=== PATIENT | male | born 1940 | race African-American/Black ===

== ENCOUNTER 2019-12-10 11:45 | Emergency (ER) | payer OTHER ==
[~2019-12-10] VITALS: Ht 180.3 cm; Wt 99.6 kg
[2019-12-10 12:35] LABS: BASOPHILS % 1.2 % (0.0-2.0); EOSINOPHILS % 3.9 % (0.0-5.0); HEMATOCRIT. 39.2 % (42.0-52.0); HEMOGLOBIN. 13.3 g/dL (14.0-18.0); LYMPHOCYTES % 20.3 % (20.0-50.0); MEAN CORPUSCULAR HEMOGLOBIN 32.1 pg (28.0-32.0); MEAN CORPUSCULAR VOLUME 94.5 fL (80.0-94.0); MEAN PLATELET VOLUME 7.5 fl (7.4-10.4); MONOCYTES % 11.8 % (2.0-8.0); NEUTROPHILS % 62.8 % (40.0-76.0); PLATELET 212 x1000/uL (130-400); RED BLOOD CELL COUNT 4.14 mill/uL (4.7-6.1); RED CELL DISTRIBUTION WIDTH 14.5 % (11.6-14.6)
[2019-12-10 12:38] LABS: CHLORIDE 107 mEq/L (98-107)
[2019-12-10 12:41] LABS: INR 1.1; PARTIAL THROMBOPLASTIN TIME 27.5 sec (23.4-31.0); PROTHROMBIN TIME 11.4 sec (9.6-11.0)
[2019-12-10 12:44] LABS: LDL CHOLESTEROL 125 mg/dL (5-100)
[2019-12-10] MEDS ORDERED: IOHEXOL-350 100 ML BOTTLE ONE (13:04)
[2019-12-10] MEDS ORDERED: ASPIRIN 325MG EC TABLET PO ONE (13:30)
[2019-12-10 15:52] LABS: CLARITY URINE CLEAR (CLEAR); COLOR URINE YELLOW (YELLOW); KETONES URINE NEGATIVE (NEGATIVE); LEUKOCYTE ESTERASE URINE NEGATIVE (NEGATIVE); NITRITE URINE NEGATIVE (NEGATIVE); OCCULT BLOOD URINE NEGATIVE (NEGATIVE); PH URINE 5.5 (4.5-8.0); PROTEIN URINE NEGATIVE (NEGATIVE); UROBILINOGEN URINE 0.2 E.U./dL (0.2-1.0)
[2019-12-10 16:00] VITALS: BP 140/66
== END 2019-12-10 17:07 | disposition left against medical advice (07) ==
LOC: ER 11:45 → EDBEDREQ 14:21 → CANBEDREQ 16:51 → ER 17:07
DX: R47.81 Slurred speech (principal); G45.9 Transient cerebral ischemic attack, unspecified
CPT/HCPCS: 36415; 70450; 70496; 70498; 71045; 80053; 80061; 81003; 82962; 83036; 83721; 84484; 85025; 85610; 85730; 93005; 99285; Q9967

== ENCOUNTER 2020-04-12 14:48 | Emergency (ER) | payer MEDICARE, OTHER ==
[~2020-04-12] VITALS: Ht 182.9 cm; Wt 91.0 kg
[2020-04-12] MEDS ORDERED: LEVETIRACETAM 500MG PREMIX 100 ML IV ONE (18:45)
[2020-04-12 19:03] LABS: BASOPHILS % 0.4 % (0.0-2.0); HEMATOCRIT. 30.6 % (42.0-52.0); HEMOGLOBIN. 10.4 g/dL (14.0-18.0); LYMPHOCYTES % 15.3 % (20.0-50.0); MEAN CORPUSCULAR HEMOGLOBIN 31.9 pg (28.0-32.0); MEAN CORPUSCULAR VOLUME 93.5 fL (80.0-94.0); MEAN PLATELET VOLUME 8.2 fl (7.4-10.4); MONOCYTES % 7.7 % (2.0-8.0); NEUTROPHILS % 76.6 % (40.0-76.0); PLATELET 182 x1000/uL (130-400); RED BLOOD CELL COUNT 3.27 mill/uL (4.7-6.1); RED CELL DISTRIBUTION WIDTH 15.4 % (11.6-14.6)
[2020-04-12 19:05] LABS: CHLORIDE 103 mEq/L (98-107)
[2020-04-12 19:10] LABS: INR 1.1; PARTIAL THROMBOPLASTIN TIME 34.6 sec (23.4-31.0); PROTHROMBIN TIME 11.7 sec (9.6-11.0)
[2020-04-12 19:17] LABS: VALPROIC ACID <3.0 ug/mL ug/mL (50-100)
[2020-04-12 20:06] LABS: CARBAMAZEPINE < 0.5 ug/mL (4-12); PHENOBARBITAL < 2.1 ug/mL (15.0-40.0)
[2020-04-12 21:51] VITALS: BP 120/86
== END 2020-04-12 21:55 | disposition home or self-care (01) ==
LOC: ER 15:10
DX: R56.9 Unspecified convulsions (principal); R05 Cough; U07.1 COVID-19; Z87.891 Personal history of nicotine dependence; E78.00 Pure hypercholesterolemia, unspecified; I10 Essential (primary) hypertension; Z86.73 Personal history of transient ischemic attack (TIA), and cerebral infarction without residual deficits
CPT/HCPCS: 36415; 71045; 80053; 80156; 80165; 80184; 80185; 85025; 85610; 85730; 87635; 93005; 96365; 99285; J1953

== ENCOUNTER 2021-11-28 13:31 | Inpatient (IN) | payer MEDICARE, MEDICAID ==
[~2021-11-28] VITALS: Ht 182.9 cm; Wt 74.4 kg
[2021-11-28] MEDS ORDERED: PANTOPRAZOLE SODIUM 40 MG/VIAL IV STA (13:54)
[2021-11-28] MEDS ORDERED: SODIUM CHLORIDE 0.9% 1,000 ML IV ONE (14:00)
[2021-11-28 14:33] LABS: BASOPHILS % 0.4 % (0.0-2.0); EOSINOPHILS % 0.1 % (0.0-5.0); HEMATOCRIT. 30.2 % (42.0-52.0); HEMOGLOBIN. 9.8 g/dL (14.0-18.0); LYMPHOCYTES % 11.4 % (20.0-50.0); MEAN CORPUSCULAR HEMOGLOBIN 27.7 pg (28.0-32.0); MEAN CORPUSCULAR VOLUME 85.4 fL (80.0-94.0); MEAN PLATELET VOLUME 7.4 fl (7.4-10.4); MONOCYTES % 10.1 % (2.0-8.0); PLATELET 293 x1000/uL (130-400); RED BLOOD CELL COUNT 3.53 mill/uL (4.7-6.1); RED CELL DISTRIBUTION WIDTH 17.2 % (11.6-14.6)
[2021-11-28 14:42] LABS: CHLORIDE 104 mEq/L (98-107); INR 1.2
[2021-11-28 16:00] VITALS: BP 105/63
[2021-11-28 17:00] VITALS: BP 105/63
[2021-11-28] MEDS ORDERED: FOLI-43 PO (17:02)
[2021-11-28] MEDS ORDERED: DEXT 5%/0.45% NACL 500ML 1,000 ML IV SCH (18:15)
[2021-11-28] MEDS ORDERED: TRAMADOL 50MG TABLET PO PRN (19:15)
[2021-11-28] MEDS: DEXT 5%/0.45% NACL 1000ML 1,000 ML IV SCH (19:42)
[2021-11-28 20:00] VITALS: BP 146/66
[2021-11-28] MEDS: ATORVASTATIN CALCIUM 40MG TABLET PO SCH (21:14)
[2021-11-29] VITALS: BP 136/61
[2021-11-29 04:00] VITALS: BP 140/71
[2021-11-29 06:13] LABS: BASOPHILS % 0.5 % (0.0-2.0); EOSINOPHILS % 1.2 % (0.0-5.0); HEMATOCRIT. 27.9 % (42.0-52.0); HEMOGLOBIN. 9.3 g/dL (14.0-18.0); LYMPHOCYTES % 21.4 % (20.0-50.0); MEAN CORPUSCULAR HEMOGLOBIN 27.9 pg (28.0-32.0); MEAN CORPUSCULAR VOLUME 83.7 fL (80.0-94.0); MEAN PLATELET VOLUME 7.6 fl (7.4-10.4); MONOCYTES % 12.7 % (2.0-8.0); NEUTROPHILS % 64.2 % (40.0-76.0); PLATELET 289 x1000/uL (130-400); RED BLOOD CELL COUNT 3.33 mill/uL (4.7-6.1); RED CELL DISTRIBUTION WIDTH 16.8 % (11.6-14.6)
[2021-11-29 08:25] VITALS: BP 102/58
[2021-11-29] MEDS ORDERED: FERROUS SULFATE 325MG TABLET PO SCH (09:00)
[2021-11-29] MEDS: ALLOPURINOL 100 MG TABLET PO SCH (09:35)
[2021-11-29] MEDS: FOLIC ACID 1MG TABLET PO SCH (09:35)
[2021-11-29] MEDS: PANTOPRAZOLE SODIUM 40 MG/VIAL IV SCH (09:35)
[2021-11-29] MEDS: DEXT 5%/0.45% NACL 1000ML 1,000 ML IV SCH ×2 (09:36→22:10)
[2021-11-29 12:00] VITALS: BP 96/51
[2021-11-29 12:45] LABS: TOTAL IRON BINDING CAPACITY 295 ug/dL (250-450)
[2021-11-29] MEDS: IRON SUCROSE COMPLEX 100 MG/5 ML ML IV SCH (14:33)
[2021-11-29 15:25] LABS: HEMATOCRIT 29.2 % (42.0-52.0); HEMOGLOBIN 9.3 g/dL (14.0-18.0)
[2021-11-29 16:00] VITALS: BP 108/77
[2021-11-29 16:16] LABS: VITAMIN B12 SERUM 437 pg/mL (211-911)
[2021-11-29 16:24] LABS: FOLIC ACID (FOLATE) SERUM > 20.00 ng/mL (>5.38)
[2021-11-29] MEDS ORDERED: NALOXONE HCL 0.4MG/ML VIAL IV PRN (16:30)
[2021-11-29] MEDS ORDERED: RIVAROXABAN 20 MG TABLET PO SCH (17:00)
[2021-11-29] MEDS: SUCRALFATE 1 G/10 ML UDC PO SCH ×2 (17:54→20:10)
[2021-11-29] MEDS: NA PHOS,M-B/NA PHOS,DI-BA ENEMA 118ML PR NR ×2 (18:44→18:46)
[2021-11-29] MEDS ORDERED: LACTULOSE 20G/30ML UDC PO PRN (19:15)
[2021-11-29] MEDS: ATORVASTATIN CALCIUM 40MG TABLET PO SCH (20:11)
[2021-11-29] MEDS: MUPIROCIN 2% OINT 22GM NS SCH (20:47)
[2021-11-30] VITALS (56 sets, daily range): BP systolic 60–140; BP diastolic 35–85
[2021-11-30] MEDS: PANTOPRAZOLE SODIUM 40 MG/VIAL IV SCH (05:05)
[2021-11-30] MEDS ORDERED: ONDANSETRON HCL 4MG/2ML INJ IV PRN (05:30)
[2021-11-30] MEDS ORDERED: DILTIAZEM HCL 5MG/ML 5ML VIAL IV SCH (05:30)
[2021-11-30] MEDS ORDERED: ACETAMINOPHEN 650MG/20.3ML UDC PO PRN (05:45)
[2021-11-30] MEDS: LACTULOSE 20G/30ML UDC PO SCH ×3 (06:00→21:06)
[2021-11-30] MEDS ORDERED: DEXT 5%/0.9% NACL 1,000 ML IV SCH (06:15)
[2021-11-30 06:53] LABS: BASOPHILS % 0.1 % (0.0-2.0); EOSINOPHILS % 1.1 % (0.0-5.0); HEMATOCRIT. 31.1 % (42.0-52.0); HEMOGLOBIN. 10.3 g/dL (14.0-18.0); LYMPHOCYTES % 8.5 % (20.0-50.0); MEAN CORPUSCULAR HEMOGLOBIN 28.5 pg (28.0-32.0); MEAN CORPUSCULAR VOLUME 86.3 fL (80.0-94.0); MEAN PLATELET VOLUME 7.4 fl (7.4-10.4); MONOCYTES % 0.5 % (2.0-8.0); NEUTROPHILS % 89.8 % (40.0-76.0); PLATELET 287 x1000/uL (130-400); RED CELL DISTRIBUTION WIDTH 17.3 % (11.6-14.6)
[2021-11-30] MEDS ORDERED: SODIUM CHLORIDE 0.9% 500 ML IV ONE (07:00)
[2021-11-30] MEDS ORDERED: POTASSIUM CHLORIDE INJ 30 MEQ in DEXT 5%/0.9% NACL 1,000 ML IV SCH (07:00)
[2021-11-30 07:16] LABS: CHLORIDE 104 mEq/L (98-107)
[2021-11-30 07:28] LABS: PHOSPHORUS 2.5 mg/dL (2.5-4.9)
[2021-11-30] MEDS: CARVEDILOL 3.125 MG TABLET PO SCH ×2 (09:00→21:00)
[2021-11-30] MEDS ORDERED: LIDOCAINE HCL/PF 1% 10 MG/ML 5ML VIAL ONE (09:48)
[2021-11-30] MEDS: FOLIC ACID 1MG TABLET PO SCH (10:22)
[2021-11-30] MEDS: IRON SUCROSE COMPLEX 100 MG/5 ML ML IV SCH (10:22)
[2021-11-30] MEDS: SUCRALFATE 1 G/10 ML UDC PO SCH ×4 (10:22→21:06)
[2021-11-30 10:27] LABS: BG BASE EXCESS -0.5 mmol/L (-2.0-2.0); BG DEOXYHEMOGLOBIN 3.6 % (0.0-5.0); BG FRACTION INSPIRED OXYGEN 21; BG METHEMOGLOBIN 0.3 % (0.0-1.5); BG OXYGEN SATURATION 96.4 % (92.0-98.5); BG OXYHEMOGLOBIN 96.1 % (94.0-97.0); BG PCO2 28.6 mmHg (35.0-45.0); BG PH 7.503 (7.350-7.450); BG PO2 80.4 mmHg (75.0-100.0); BG SAMPLE SITE RIGHT BRACHIAL; BG TOTAL HEMOGLOBIN 9.7 g/dL (12.0-18.0); BG VENT MODE ROOM AIR
[2021-11-30] MEDS: PHENYLEPHRINE 100 MG in DEXT 5% WATER 240 ML IV PRN ×2 (11:00→18:51)
[2021-11-30] MEDS: MUPIROCIN 2% OINT 22GM NS SCH ×2 (11:01→21:10)
[2021-11-30] MEDS: PIPERACILLIN/TAZOBACTAM 3.375 G in DEXTROSE 5% WATER 50 ML IV SCH ×3 (11:02→21:06)
[2021-11-30] MEDS: ALLOPURINOL 100 MG TABLET PO SCH (11:05)
[2021-11-30] MEDS: SODIUM CHLORIDE 0.9% 1,000 ML IV SCH ×2 (11:15→19:57)
[2021-11-30] MEDS ORDERED: AMIODARONE HCL 900 MG in DEXT 5% WATER 482 ML IV PRN (11:15)
[2021-11-30] MEDS ORDERED: NOREPINEPHRINE 8MG/250ML PMX 250 ML IV ONE (11:30)
[2021-11-30] MEDS ORDERED: AMIODARONE HCL 150 MG in DEXT 5% WATER 100 ML IV NR (11:30)
[2021-11-30] MEDS ORDERED: VANCOMYCIN 1.25GM PMX (XELLIA) 250 ML IV NR (12:00)
[2021-11-30] MEDS: NOREPINEPHRINE 8 MG in DEXTROSE 5% WATER 250 ML IV PRN ×3 (12:30→21:48)
[2021-11-30] MEDS ORDERED: DILTIAZEM 125MG/125ML PMX 125 ML IV PRN (12:30)
[2021-11-30] MEDS: VASOPRESSIN 20 UNIT in SODIUM CHLORIDE 0.9% 99 ML IV PRN ×2 (12:38→19:46)
[2021-11-30 15:07] LABS: HEMATOCRIT 22.6 % (42.0-52.0); HEMOGLOBIN 7.3 g/dL (14.0-18.0)
[2021-11-30 16:44] LABS: HEMATOCRIT 27.7 % (42.0-52.0); HEMOGLOBIN 8.6 g/dL (14.0-18.0)
[2021-11-30] MEDS ORDERED: BISACODYL 10MG SUPP PR PRN (18:15)
[2021-11-30] MEDS: ATORVASTATIN CALCIUM 40MG TABLET PO SCH (21:06)
[2021-11-30] MEDS: VANCOMYCIN 750 MG in DEXT 5% WATER 250 ML IV SCH (22:58)
[2021-12-01] VITALS (91 sets, daily range): BP systolic 68–140; BP diastolic 24–83
[2021-12-01 00:08] LABS: HEMATOCRIT 24.6 % (42.0-52.0)
[2021-12-01 01:25] LABS: CLARITY URINE CLOUDY (CLEAR); COLOR URINE YELLOW (YELLOW); KETONES URINE NEGATIVE (NEGATIVE); LEUKOCYTE ESTERASE URINE 3+ (NEGATIVE); NITRITE URINE POSITIVE (NEGATIVE); OCCULT BLOOD URINE 2+ (NEGATIVE); PROTEIN URINE 1+ (NEGATIVE); SPECIFIC GRAVITY URINE 1.023 (1.005-1.030)
[2021-12-01] MEDS: NOREPINEPHRINE 8 MG in DEXTROSE 5% WATER 250 ML IV PRN ×3 (02:56→14:58)
[2021-12-01 05:56] LABS: CHLORIDE 103 mEq/L (98-107)
[2021-12-01] MEDS: LACTULOSE 20G/30ML UDC PO SCH ×3 (05:58→21:41)
[2021-12-01] MEDS: PIPERACILLIN/TAZOBACTAM 3.375 G in DEXTROSE 5% WATER 50 ML IV SCH ×3 (05:58→21:43)
[2021-12-01] MEDS ORDERED: MAGNESIUM 2 G PREMIX 50 ML IV SCH ×2 (07:15→10:00)
[2021-12-01] MEDS: PANTOPRAZOLE SODIUM 40 MG/VIAL IV SCH ×2 (08:25→21:23)
[2021-12-01] MEDS: SUCRALFATE 1 G/10 ML UDC PO SCH ×4 (08:25→21:28)
[2021-12-01] MEDS: ALLOPURINOL 100 MG TABLET PO SCH (08:25)
[2021-12-01] MEDS: VASOPRESSIN 20 UNIT in SODIUM CHLORIDE 0.9% 99 ML IV PRN (08:25)
[2021-12-01] MEDS: IRON SUCROSE COMPLEX 100 MG/5 ML ML IV SCH (08:25)
[2021-12-01] MEDS: SODIUM CHLORIDE 0.9% 1,000 ML IV SCH ×2 (08:26→17:08)
[2021-12-01] MEDS: FOLIC ACID 1MG TABLET PO SCH (08:26)
[2021-12-01] MEDS: CARVEDILOL 3.125 MG TABLET PO SCH ×2 (08:26→21:29)
[2021-12-01] MEDS: VANCOMYCIN 750 MG in DEXT 5% WATER 250 ML IV SCH ×2 (08:28→21:25)
[2021-12-01] MEDS: MUPIROCIN 2% OINT 22GM NS SCH (08:29)
[2021-12-01] MEDS: FUROSEMIDE 40MG/4ML VIAL IVP SCH (10:20)
[2021-12-01] MEDS: AMIODARONE HCL 200 MG TABLET PO SCH ×2 (10:21→21:00)
[2021-12-01 11:05] LABS: HEMATOCRIT. 24.9 % (42.0-52.0); MEAN CORPUSCULAR VOLUME 84.3 fL (80.0-94.0); MEAN PLATELET VOLUME 7.9 fl (7.4-10.4); PLATELET 222 x1000/uL (130-400); RED BLOOD CELL COUNT 2.96 mill/uL (4.7-6.1)
[2021-12-01 12:50] LABS: PLATELET ESTIMATE NORMAL
[2021-12-01 15:49] LABS: HEMATOCRIT 26.5 % (42.0-52.0); HEMOGLOBIN 8.5 g/dL (14.0-18.0)
[2021-12-01] MEDS ORDERED: AMIODARONE HCL 200 MG TABLET PO SCH (21:00)
[2021-12-01] MEDS: ATORVASTATIN CALCIUM 40MG TABLET PO SCH (21:28)
[2021-12-02] VITALS (67 sets, daily range): BP systolic 71–156; BP diastolic 35–98
[2021-12-02] MEDS: NOREPINEPHRINE 8 MG in DEXTROSE 5% WATER 250 ML IV PRN ×3 (00:32→22:57)
[2021-12-02] MEDS: VASOPRESSIN 20 UNIT in SODIUM CHLORIDE 0.9% 99 ML IV PRN (00:34)
[2021-12-02] MEDS: MUPIROCIN 2% OINT 22GM NS SCH ×3 (00:35→22:00)
[2021-12-02] MEDS: SODIUM CHLORIDE 0.9% 1,000 ML IV SCH ×2 (03:22→13:47)
[2021-12-02 05:41] LABS: HEMATOCRIT. 23.3 % (42.0-52.0); HEMOGLOBIN. 7.6 g/dL (14.0-18.0); MEAN CORPUSCULAR HEMOGLOBIN 27.2 pg (28.0-32.0); MEAN CORPUSCULAR VOLUME 83.6 fL (80.0-94.0); PLATELET 208 x1000/uL (130-400); RED BLOOD CELL COUNT 2.79 mill/uL (4.7-6.1); RED CELL DISTRIBUTION WIDTH 16.9 % (11.6-14.6)
[2021-12-02 06:05] LABS: CHLORIDE 100 mEq/L (98-107)
[2021-12-02] MEDS: PIPERACILLIN/TAZOBACTAM 3.375 G in DEXTROSE 5% WATER 50 ML IV SCH ×2 (06:21→13:59)
[2021-12-02] MEDS: LACTULOSE 20G/30ML UDC PO SCH ×3 (06:22→22:05)
[2021-12-02 07:54] LABS: PLATELET ESTIMATE NORMAL
[2021-12-02] MEDS: VANCOMYCIN 750 MG in DEXT 5% WATER 250 ML IV SCH (08:03)
[2021-12-02] MEDS: FOLIC ACID 1MG TABLET PO SCH (08:04)
[2021-12-02] MEDS: AMIODARONE HCL 200 MG TABLET PO SCH ×2 (08:05→22:05)
[2021-12-02] MEDS: IRON SUCROSE COMPLEX 100 MG/5 ML ML IV SCH (08:06)
[2021-12-02] MEDS: KCL 20MEQ/100ML X 2 FOR TOTAL KCL 40MEQ/200ML IV SCH ×3 (08:06→13:59)
[2021-12-02] MEDS: PANTOPRAZOLE SODIUM 40 MG/VIAL IV SCH ×2 (08:06→21:00)
[2021-12-02] MEDS: SUCRALFATE 1 G/10 ML UDC PO SCH ×4 (08:06→21:59)
[2021-12-02] MEDS: ALLOPURINOL 100 MG TABLET PO SCH (08:06)
[2021-12-02] MEDS: FUROSEMIDE 40MG/4ML VIAL IVP SCH (08:06)
[2021-12-02] MEDS: CARVEDILOL 3.125 MG TABLET PO SCH ×2 (08:07→21:00)
[2021-12-02] MEDS: ATORVASTATIN CALCIUM 40MG TABLET PO SCH (22:00)
[2021-12-02] MEDS: MEROPENEM 1,000 MG in SODIUM CHLORIDE 0.9% 100 ML IV SCH (22:05)
[2021-12-03] VITALS (70 sets, daily range): BP systolic 81–130; BP diastolic 52–82
[2021-12-03] MEDS: SODIUM CHLORIDE 0.9% 1,000 ML IV SCH ×2 (01:05→09:19)
[2021-12-03 05:54] LABS: HEMATOCRIT. 25.2 % (42.0-52.0); HEMOGLOBIN. 8.3 g/dL (14.0-18.0); MEAN CORPUSCULAR HEMOGLOBIN 27.6 pg (28.0-32.0); MEAN CORPUSCULAR VOLUME 83.5 fL (80.0-94.0); MEAN PLATELET VOLUME 7.9 fl (7.4-10.4); PLATELET 212 x1000/uL (130-400); RED BLOOD CELL COUNT 3.02 mill/uL (4.7-6.1); RED CELL DISTRIBUTION WIDTH 16.9 % (11.6-14.6)
[2021-12-03 05:58] LABS: CHLORIDE 106 mEq/L (98-107)
[2021-12-03] MEDS: LACTULOSE 20G/30ML UDC PO SCH ×3 (06:22→22:38)
[2021-12-03] MEDS: MEROPENEM 1,000 MG in SODIUM CHLORIDE 0.9% 100 ML IV SCH ×3 (06:22→22:39)
[2021-12-03] MEDS ORDERED: POTASSIUM CHLORIDE 20MEQ TABLET SR PO NR (09:00)
[2021-12-03] MEDS: CARVEDILOL 3.125 MG TABLET PO SCH ×2 (09:00→21:00)
[2021-12-03] MEDS: FUROSEMIDE 40MG/4ML VIAL IVP SCH (09:16)
[2021-12-03] MEDS: PANTOPRAZOLE SODIUM 40 MG/VIAL IV SCH ×2 (09:16→21:11)
[2021-12-03] MEDS: SUCRALFATE 1 G/10 ML UDC PO SCH ×4 (09:16→21:11)
[2021-12-03] MEDS: IRON SUCROSE COMPLEX 100 MG/5 ML ML IV SCH (09:16)
[2021-12-03] MEDS: ALLOPURINOL 100 MG TABLET PO SCH (09:18)
[2021-12-03] MEDS: FOLIC ACID 1MG TABLET PO SCH (09:18)
[2021-12-03] MEDS: POTASSIUM CHLORIDE 20MEQ TABLET SR PO SCH (09:18)
[2021-12-03] MEDS: AMIODARONE HCL 200 MG TABLET PO SCH ×2 (09:19→21:12)
[2021-12-03] MEDS: MUPIROCIN 2% OINT 22GM NS SCH ×2 (09:20→21:11)
[2021-12-03 13:46] LABS: PLATELET ESTIMATE NORMAL
[2021-12-03] MEDS ORDERED: ALBUMIN HUMAN 25GM/100ML (25%) IV NR (20:30)
[2021-12-03] MEDS: ATORVASTATIN CALCIUM 40MG TABLET PO SCH (21:12)
[2021-12-04] VITALS (48 sets, daily range): BP systolic 82–123; BP diastolic 40–74
[2021-12-04] MEDS: SODIUM CHLORIDE 0.9% 1,000 ML IV SCH (01:06)
[2021-12-04 06:23] LABS: BASOPHILS % 0.5 % (0.0-2.0); EOSINOPHILS % 1.7 % (0.0-5.0); HEMATOCRIT. 25.9 % (42.0-52.0); HEMOGLOBIN. 8.5 g/dL (14.0-18.0); LYMPHOCYTES % 11.4 % (20.0-50.0); MEAN CORPUSCULAR HEMOGLOBIN 27.6 pg (28.0-32.0); MEAN CORPUSCULAR VOLUME 83.6 fL (80.0-94.0); MEAN PLATELET VOLUME 7.7 fl (7.4-10.4); MONOCYTES % 7.4 % (2.0-8.0); PLATELET 211 x1000/uL (130-400); RED BLOOD CELL COUNT 3.09 mill/uL (4.7-6.1); RED CELL DISTRIBUTION WIDTH 17.5 % (11.6-14.6)
[2021-12-04 06:28] LABS: CHLORIDE 108 mEq/L (98-107)
[2021-12-04] MEDS: LACTULOSE 20G/30ML UDC PO SCH ×3 (06:54→21:19)
[2021-12-04] MEDS: MEROPENEM 1,000 MG in SODIUM CHLORIDE 0.9% 100 ML IV SCH ×3 (06:54→21:19)
[2021-12-04 07:01] LABS: PHOSPHORUS 0.9 mg/dL (2.5-4.9)
[2021-12-04] MEDS: AMIODARONE HCL 200 MG TABLET PO SCH ×2 (08:46→09:45)
[2021-12-04] MEDS: SUCRALFATE 1 G/10 ML UDC PO SCH ×4 (08:46→21:19)
[2021-12-04] MEDS: ALLOPURINOL 100 MG TABLET PO SCH (08:46)
[2021-12-04] MEDS: FUROSEMIDE 40MG/4ML VIAL IVP SCH (08:46)
[2021-12-04] MEDS: CARVEDILOL 3.125 MG TABLET PO SCH ×2 (08:46→21:00)
[2021-12-04] MEDS: POTASSIUM CHLORIDE 20MEQ TABLET SR PO SCH (08:46)
[2021-12-04] MEDS: MUPIROCIN 2% OINT 22GM NS SCH (08:47)
[2021-12-04] MEDS: PANTOPRAZOLE SODIUM 40 MG/VIAL IV SCH ×2 (08:47→21:19)
[2021-12-04] MEDS: FOLIC ACID 1MG TABLET PO SCH (08:47)
[2021-12-04] MEDS ORDERED: POTASSIUM CHLORIDE 20MEQ TABLET SR PO NR (09:30)
[2021-12-04] MEDS ORDERED: POTASSIUM PHOS,M-BASIC-D-BASIC 20 MMOL in DEXT 5% WATER 243.3333 ML IV NR (12:00)
[2021-12-04] MEDS: ATORVASTATIN CALCIUM 40MG TABLET PO SCH (21:19)
[2021-12-05] VITALS (46 sets, daily range): BP systolic 82–128; BP diastolic 28–83
[2021-12-05 03:38] LABS: BASOPHILS % 0.5 % (0.0-2.0); EOSINOPHILS % 1.8 % (0.0-5.0); HEMATOCRIT. 30.2 % (42.0-52.0); HEMOGLOBIN. 9.8 g/dL (14.0-18.0); LYMPHOCYTES % 18.1 % (20.0-50.0); MEAN CORPUSCULAR HEMOGLOBIN 27.4 pg (28.0-32.0); MEAN CORPUSCULAR VOLUME 84.7 fL (80.0-94.0); MEAN PLATELET VOLUME 7.9 fl (7.4-10.4); NEUTROPHILS % 67.6 % (40.0-76.0); PLATELET 261 x1000/uL (130-400); RED BLOOD CELL COUNT 3.57 mill/uL (4.7-6.1); RED CELL DISTRIBUTION WIDTH 17.1 % (11.6-14.6)
[2021-12-05 03:47] LABS: CHLORIDE 104 mEq/L (98-107)
[2021-12-05 03:50] LABS: PROTHROMBIN TIME 11.2 sec (9.6-11.0)
[2021-12-05 04:17] LABS: PHOSPHORUS 0.8 mg/dL (2.5-4.9)
[2021-12-05] MEDS: MEROPENEM 1,000 MG in SODIUM CHLORIDE 0.9% 100 ML IV SCH ×3 (05:22→21:04)
[2021-12-05] MEDS: LACTULOSE 20G/30ML UDC PO SCH ×3 (05:22→21:02)
[2021-12-05] MEDS: DEXT 5%/0.45% NACL 1000ML 1,000 ML IV SCH ×2 (06:31→22:54)
[2021-12-05] MEDS ORDERED: SODIUM PHOS,M-BASIC-D-BASIC 20 MM in DEXT 5% WATER 243.3333 ML IV NR (07:00)
[2021-12-05] MEDS: SUCRALFATE 1 G/10 ML UDC PO SCH ×4 (07:50→21:02)
[2021-12-05] MEDS: FOLIC ACID 1MG TABLET PO SCH (09:00)
[2021-12-05] MEDS: ALLOPURINOL 100 MG TABLET PO SCH (09:00)
[2021-12-05] MEDS: CARVEDILOL 3.125 MG TABLET PO SCH ×2 (09:00→21:00)
[2021-12-05] MEDS ORDERED: MAGNESIUM 2 G PREMIX 50 ML IV NR (09:00)
[2021-12-05] MEDS: PANTOPRAZOLE SODIUM 40 MG/VIAL IV SCH ×2 (09:29→21:02)
[2021-12-05] MEDS ORDERED: SODIUM PHOS,M-BASIC-D-BASIC 30 MM in DEXT 5% WATER 500 ML IV ONE (12:00)
[2021-12-05] MEDS ORDERED: PHENYLEPHRINE HCL 10 MG/ML 1ML (IV VIAL) IV ONE (13:01)
[2021-12-05] MEDS: AMIODARONE HCL 200 MG TABLET PO SCH (13:30)
[2021-12-05] MEDS: FUROSEMIDE 40MG/4 ML UDC PO SCH (13:30)
[2021-12-05] MEDS: POTASSIUM CHLORIDE 20MEQ TABLET SR PO SCH (13:30)
[2021-12-05] MEDS: ATORVASTATIN CALCIUM 40MG TABLET PO SCH (21:03)
[2021-12-06] VITALS (64 sets, daily range): BP systolic 77–120; BP diastolic 38–76
[2021-12-06] MEDS: LACTULOSE 20G/30ML UDC PO SCH ×3 (06:14→21:30)
[2021-12-06] MEDS: MEROPENEM 1,000 MG in SODIUM CHLORIDE 0.9% 100 ML IV SCH ×3 (06:14→21:30)
[2021-12-06 07:26] LABS: HEMATOCRIT. 31.1 % (42.0-52.0); HEMOGLOBIN. 10.4 g/dL (14.0-18.0); MEAN CORPUSCULAR VOLUME 83.5 fL (80.0-94.0); MEAN PLATELET VOLUME 8.2 fl (7.4-10.4); PLATELET 262 x1000/uL (130-400); RED BLOOD CELL COUNT 3.73 mill/uL (4.7-6.1); RED CELL DISTRIBUTION WIDTH 17.5 % (11.6-14.6)
[2021-12-06 07:33] LABS: CHLORIDE 102 mEq/L (98-107)
[2021-12-06] MEDS: CARVEDILOL 3.125 MG TABLET PO SCH ×2 (08:48→21:00)
[2021-12-06] MEDS: ALLOPURINOL 100 MG TABLET PO SCH (08:48)
[2021-12-06] MEDS: SUCRALFATE 1 G/10 ML UDC PO SCH ×4 (08:57→21:30)
[2021-12-06] MEDS: PANTOPRAZOLE SODIUM 40 MG/VIAL IV SCH ×2 (08:57→21:30)
[2021-12-06] MEDS: AMIODARONE HCL 200 MG TABLET PO SCH (08:58)
[2021-12-06] MEDS: FOLIC ACID 1MG TABLET PO SCH (08:58)
[2021-12-06] MEDS: POTASSIUM CHLORIDE 20MEQ TABLET SR PO SCH (08:58)
[2021-12-06] MEDS: FUROSEMIDE 40MG/4 ML UDC PO SCH (08:59)
[2021-12-06 09:09] LABS: PLATELET ESTIMATE NORMAL
[2021-12-06] MEDS: NOREPINEPHRINE 8 MG in DEXTROSE 5% WATER 250 ML IV PRN (10:34)
[2021-12-06] MEDS ORDERED: SODIUM PHOS,M-BASIC-D-BASIC 15 MM in DEXT 5% WATER 245 ML IV ONE (15:00)
[2021-12-06] MEDS: ATORVASTATIN CALCIUM 40MG TABLET PO SCH (21:30)
[2021-12-07] VITALS (94 sets, daily range): BP systolic 78–141; BP diastolic 26–86
[2021-12-07] MEDS: NOREPINEPHRINE 8 MG in DEXTROSE 5% WATER 250 ML IV PRN ×2 (05:26→19:51)
[2021-12-07] MEDS: MEROPENEM 1,000 MG in SODIUM CHLORIDE 0.9% 100 ML IV SCH ×3 (06:19→21:33)
[2021-12-07] MEDS: LACTULOSE 20G/30ML UDC PO SCH ×3 (06:19→21:33)
[2021-12-07] MEDS: CARVEDILOL 3.125 MG TABLET PO SCH ×2 (08:28→21:33)
[2021-12-07] MEDS: SUCRALFATE 1 G/10 ML UDC PO SCH ×4 (08:29→21:33)
[2021-12-07] MEDS: ALLOPURINOL 100 MG TABLET PO SCH (08:29)
[2021-12-07] MEDS: PANTOPRAZOLE SODIUM 40 MG/VIAL IV SCH ×2 (08:29→21:33)
[2021-12-07] MEDS: AMIODARONE HCL 200 MG TABLET PO SCH (08:29)
[2021-12-07] MEDS: FOLIC ACID 1MG TABLET PO SCH (08:29)
[2021-12-07 11:23] LABS: HEMATOCRIT. 30.5 % (42.0-52.0); MEAN CORPUSCULAR HEMOGLOBIN 27.7 pg (28.0-32.0); MEAN CORPUSCULAR VOLUME 84.8 fL (80.0-94.0); MEAN PLATELET VOLUME 7.8 fl (7.4-10.4); PLATELET 300 x1000/uL (130-400)
[2021-12-07 11:27] LABS: CHLORIDE 104 mEq/L (98-107)
[2021-12-07 11:32] LABS: PHOSPHORUS 2.1 mg/dL (2.5-4.9)
[2021-12-07 12:41] LABS: PLATELET ESTIMATE NORMAL
[2021-12-07] MEDS ORDERED: SODIUM PHOS,M-BASIC-D-BASIC 15 MM in DEXT 5% WATER 245 ML IV SCH (14:00)
[2021-12-07] MEDS: ATORVASTATIN CALCIUM 40MG TABLET PO SCH (21:33)
[2021-12-08] VITALS (90 sets, daily range): BP systolic 73–125; BP diastolic 32–73
[2021-12-08 05:50] LABS: HEMOGLOBIN. 10.3 g/dL (14.0-18.0); MEAN CORPUSCULAR HEMOGLOBIN 27.5 pg (28.0-32.0); MEAN CORPUSCULAR VOLUME 85.3 fL (80.0-94.0); MEAN PLATELET VOLUME 8.1 fl (7.4-10.4); PLATELET 304 x1000/uL (130-400); RED BLOOD CELL COUNT 3.76 mill/uL (4.7-6.1); RED CELL DISTRIBUTION WIDTH 17.7 % (11.6-14.6)
[2021-12-08 05:57] LABS: INR 1.1; PROTHROMBIN TIME 11.4 sec (9.6-11.0)
[2021-12-08] MEDS: MEROPENEM 1,000 MG in SODIUM CHLORIDE 0.9% 100 ML IV SCH ×3 (06:00→21:14)
[2021-12-08] MEDS: LACTULOSE 20G/30ML UDC PO SCH ×2 (06:00→14:00)
[2021-12-08] MEDS: NOREPINEPHRINE 8 MG in DEXTROSE 5% WATER 250 ML IV PRN (06:00)
[2021-12-08 06:05] LABS: CHLORIDE 103 mEq/L (98-107)
[2021-12-08] MEDS: SUCRALFATE 1 G/10 ML UDC PO SCH ×4 (07:50→21:16)
[2021-12-08 08:30] LABS: PLATELET ESTIMATE NORMAL
[2021-12-08] MEDS: PANTOPRAZOLE SODIUM 40 MG/VIAL IV SCH ×2 (08:31→21:16)
[2021-12-08] MEDS: CARVEDILOL 3.125 MG TABLET PO SCH ×2 (09:00→21:00)
[2021-12-08] MEDS: AMIODARONE HCL 200 MG TABLET PO SCH (09:00)
[2021-12-08] MEDS: ALLOPURINOL 100 MG TABLET PO SCH (09:00)
[2021-12-08] MEDS: FOLIC ACID 1MG TABLET PO SCH (09:00)
[2021-12-08] MEDS ORDERED: ALBUMIN HUMAN 25GM/100ML (25%) IV NR (10:00)
[2021-12-08] MEDS: DEXT 5%/0.9% NACL 1,000 ML IV SCH (10:01)
[2021-12-08] MEDS ORDERED: SODIUM PHOS,M-BASIC-D-BASIC 10 MM in DEXT 5% WATER 246.6667 ML IV NR (11:00)
[2021-12-08] MEDS: MIDODRINE HCL 5MG TABLET PO SCH ×3 (11:30→17:06)
[2021-12-08] MEDS ORDERED: PROPOFOL 200MG/20ML VIAL IV ONE (13:59)
[2021-12-08] MEDS ORDERED: MIDAZOLAM HCL 2 MG/2 ML VIAL ONE (13:59)
[2021-12-08] MEDS ORDERED: ETOMIDATE 2MG/ML 10ML VIAL IV ONE (14:10)
[2021-12-08] MEDS: ATORVASTATIN CALCIUM 40MG TABLET PO SCH (21:15)
[2021-12-09] VITALS (96 sets, daily range): BP systolic 79–138; BP diastolic 40–101
[2021-12-09] MEDS: NOREPINEPHRINE 8 MG in DEXTROSE 5% WATER 250 ML IV PRN (00:55)
[2021-12-09] MEDS: DEXT 5%/0.9% NACL 1,000 ML IV SCH ×2 (01:45→13:36)
[2021-12-09] MEDS: LACTULOSE 20G/30ML UDC PO SCH ×4 (05:28→21:00)
[2021-12-09] MEDS: MEROPENEM 1,000 MG in SODIUM CHLORIDE 0.9% 100 ML IV SCH ×3 (05:28→21:00)
[2021-12-09 05:48] LABS: BASOPHILS % 0.6 % (0.0-2.0); EOSINOPHILS % 2.3 % (0.0-5.0); HEMATOCRIT. 27.5 % (42.0-52.0); LYMPHOCYTES % 14.6 % (20.0-50.0); MEAN CORPUSCULAR HEMOGLOBIN 27.9 pg (28.0-32.0); MEAN CORPUSCULAR VOLUME 85.2 fL (80.0-94.0); MEAN PLATELET VOLUME 7.9 fl (7.4-10.4); MONOCYTES % 10.3 % (2.0-8.0); NEUTROPHILS % 72.2 % (40.0-76.0); PLATELET 303 x1000/uL (130-400); RED BLOOD CELL COUNT 3.23 mill/uL (4.7-6.1); RED CELL DISTRIBUTION WIDTH 17.8 % (11.6-14.6)
[2021-12-09 06:00] LABS: CHLORIDE 107 mEq/L (98-107)
[2021-12-09 06:04] LABS: PHOSPHORUS 1.4 mg/dL (2.5-4.9)
[2021-12-09] MEDS: MIDODRINE HCL 5MG TABLET PO SCH ×3 (08:15→17:30)
[2021-12-09] MEDS: SUCRALFATE 1 G/10 ML UDC PO SCH ×4 (08:15→21:00)
[2021-12-09] MEDS: FOLIC ACID 1MG TABLET PO SCH (08:15)
[2021-12-09] MEDS: AMIODARONE HCL 200 MG TABLET PO SCH (08:15)
[2021-12-09] MEDS: ALLOPURINOL 100 MG TABLET PO SCH (08:15)
[2021-12-09] MEDS: PANTOPRAZOLE SODIUM 40 MG/VIAL IV SCH ×2 (08:15→21:01)
[2021-12-09] MEDS: CARVEDILOL 3.125 MG TABLET PO SCH ×2 (08:16→20:11)
[2021-12-09] MEDS ORDERED: POTASSIUM PHOS,M-BASIC-D-BASIC 20 MMOL in DEXT 5% WATER 243.3333 ML IV NR (09:30)
[2021-12-09] MEDS: POTASSIUM-SODIUM PHOSPHATE POWDER PACKET PO SCH ×2 (09:49→17:29)
[2021-12-09] MEDS: TRAMADOL 50MG TABLET PO PRN (21:01)
[2021-12-09] MEDS: ATORVASTATIN CALCIUM 40MG TABLET PO SCH (21:01)
[2021-12-10] VITALS (72 sets, daily range): BP systolic 55–124; BP diastolic 23–99
[2021-12-10] MEDS: DEXT 5%/0.9% NACL 1,000 ML IV SCH (02:08)
[2021-12-10] MEDS: LACTULOSE 20G/30ML UDC PO SCH ×3 (05:18→21:39)
[2021-12-10] MEDS: MEROPENEM 1,000 MG in SODIUM CHLORIDE 0.9% 100 ML IV SCH ×3 (05:18→23:08)
[2021-12-10] MEDS: TRAMADOL 50MG TABLET PO PRN (05:18)
[2021-12-10 05:51] LABS: BASOPHILS % 0.5 % (0.0-2.0); EOSINOPHILS % 2.1 % (0.0-5.0); HEMATOCRIT. 27.9 % (42.0-52.0); LYMPHOCYTES % 17.7 % (20.0-50.0); MEAN CORPUSCULAR HEMOGLOBIN 27.6 pg (28.0-32.0); MEAN CORPUSCULAR VOLUME 85.8 fL (80.0-94.0); MEAN PLATELET VOLUME 7.7 fl (7.4-10.4); MONOCYTES % 11.6 % (2.0-8.0); NEUTROPHILS % 68.1 % (40.0-76.0); PLATELET 306 x1000/uL (130-400); RED BLOOD CELL COUNT 3.25 mill/uL (4.7-6.1); RED CELL DISTRIBUTION WIDTH 18.3 % (11.6-14.6)
[2021-12-10 06:03] LABS: CHLORIDE 108 mEq/L (98-107)
[2021-12-10 06:16] LABS: PHOSPHORUS 1.7 mg/dL (2.5-4.9)
[2021-12-10] MEDS: SUCRALFATE 1 G/10 ML UDC PO SCH ×4 (08:01→21:40)
[2021-12-10] MEDS: PANTOPRAZOLE SODIUM 40 MG/VIAL IV SCH ×2 (08:01→21:41)
[2021-12-10] MEDS: MIDODRINE HCL 5MG TABLET PO SCH ×3 (08:02→17:05)
[2021-12-10] MEDS: POTASSIUM-SODIUM PHOSPHATE POWDER PACKET PO SCH ×2 (08:02→17:05)
[2021-12-10] MEDS: AMIODARONE HCL 200 MG TABLET PO SCH (08:02)
[2021-12-10] MEDS: CARVEDILOL 3.125 MG TABLET PO SCH ×2 (08:02→21:40)
[2021-12-10] MEDS: FOLIC ACID 1MG TABLET PO SCH (08:02)
[2021-12-10] MEDS: ALLOPURINOL 100 MG TABLET PO SCH (08:03)
[2021-12-10] MEDS ORDERED: POTASSIUM PHOS,M-BASIC-D-BASIC 20 MMOL in DEXT 5% WATER 243.3333 ML IV NR (13:30)
[2021-12-10] MEDS: ATORVASTATIN CALCIUM 40MG TABLET PO SCH (21:40)
[2021-12-11] VITALS: BP 90/49
[2021-12-11 04:00] VITALS: BP 131/62
[2021-12-11] MEDS: LACTULOSE 20G/30ML UDC PO SCH ×3 (05:24→21:10)
[2021-12-11] MEDS: MEROPENEM 1,000 MG in SODIUM CHLORIDE 0.9% 100 ML IV SCH ×3 (05:24→21:10)
[2021-12-11 07:01] LABS: CHLORIDE 102 mEq/L (98-107)
[2021-12-11 07:02] LABS: BASOPHILS % 0.5 % (0.0-2.0); EOSINOPHILS % 1.4 % (0.0-5.0); HEMATOCRIT. 31.7 % (42.0-52.0); HEMOGLOBIN. 10.3 g/dL (14.0-18.0); LYMPHOCYTES % 10.6 % (20.0-50.0); MEAN CORPUSCULAR HEMOGLOBIN 27.5 pg (28.0-32.0); MEAN CORPUSCULAR VOLUME 84.7 fL (80.0-94.0); MEAN PLATELET VOLUME 7.7 fl (7.4-10.4); MONOCYTES % 8.2 % (2.0-8.0); NEUTROPHILS % 79.3 % (40.0-76.0); PLATELET 385 x1000/uL (130-400); RED BLOOD CELL COUNT 3.74 mill/uL (4.7-6.1); RED CELL DISTRIBUTION WIDTH 17.9 % (11.6-14.6)
[2021-12-11 07:09] LABS: PHOSPHORUS 2.2 mg/dL (2.5-4.9)
[2021-12-11 08:00] VITALS: BP 100/59
[2021-12-11] MEDS: CARVEDILOL 3.125 MG TABLET PO SCH ×2 (09:00→20:18)
[2021-12-11] MEDS: AMIODARONE HCL 200 MG TABLET PO SCH ×2 (09:00→20:18)
[2021-12-11] MEDS: SUCRALFATE 1 G/10 ML UDC PO SCH ×4 (09:00→20:22)
[2021-12-11] MEDS: MIDODRINE HCL 5MG TABLET PO SCH ×3 (09:01→16:45)
[2021-12-11] MEDS: PANTOPRAZOLE SODIUM 40 MG/VIAL IV SCH ×2 (09:01→20:22)
[2021-12-11] MEDS: ALLOPURINOL 100 MG TABLET PO SCH (09:01)
[2021-12-11] MEDS: FOLIC ACID 1MG TABLET PO SCH (09:01)
[2021-12-11] MEDS: POTASSIUM-SODIUM PHOSPHATE POWDER PACKET PO SCH ×2 (09:01→16:45)
[2021-12-11 12:00] VITALS: BP 109/56
[2021-12-11 16:00] VITALS: BP 90/65
[2021-12-11 20:00] VITALS: BP 102/81
[2021-12-11] MEDS: ATORVASTATIN CALCIUM 40MG TABLET PO SCH (20:22)
[2021-12-12] VITALS: BP 100/64
[2021-12-12 04:00] VITALS: BP 105/52
[2021-12-12] MEDS: LACTULOSE 20G/30ML UDC PO SCH ×4 (05:36→22:50)
[2021-12-12] MEDS: MEROPENEM 1,000 MG in SODIUM CHLORIDE 0.9% 100 ML IV SCH ×3 (05:36→22:50)
[2021-12-12 08:00] VITALS: BP 100/61
[2021-12-12] MEDS: AMIODARONE HCL 200 MG TABLET PO SCH (08:07)
[2021-12-12] MEDS: CARVEDILOL 3.125 MG TABLET PO SCH ×2 (08:40→20:48)
[2021-12-12] MEDS: MIDODRINE HCL 5MG TABLET PO SCH ×3 (08:48→17:48)
[2021-12-12] MEDS: PANTOPRAZOLE SODIUM 40 MG/VIAL IV SCH ×2 (08:48→20:55)
[2021-12-12] MEDS: FOLIC ACID 1MG TABLET PO SCH (08:48)
[2021-12-12] MEDS: ALLOPURINOL 100 MG TABLET PO SCH (08:48)
[2021-12-12] MEDS: SUCRALFATE 1 G/10 ML UDC PO SCH ×4 (08:48→20:55)
[2021-12-12] MEDS: POTASSIUM-SODIUM PHOSPHATE POWDER PACKET PO SCH ×2 (08:50→17:47)
[2021-12-12 09:39] LABS: BASOPHILS % 0.5 % (0.0-2.0); EOSINOPHILS % 0.9 % (0.0-5.0); HEMOGLOBIN. 10.4 g/dL (14.0-18.0); LYMPHOCYTES % 11.2 % (20.0-50.0); MEAN CORPUSCULAR HEMOGLOBIN 27.5 pg (28.0-32.0); MEAN CORPUSCULAR VOLUME 84.6 fL (80.0-94.0); MEAN PLATELET VOLUME 7.8 fl (7.4-10.4); MONOCYTES % 9.9 % (2.0-8.0); NEUTROPHILS % 77.5 % (40.0-76.0); PLATELET 362 x1000/uL (130-400); RED BLOOD CELL COUNT 3.78 mill/uL (4.7-6.1); RED CELL DISTRIBUTION WIDTH 18.1 % (11.6-14.6)
[2021-12-12 09:54] LABS: CHLORIDE 100 mEq/L (98-107)
[2021-12-12] MEDS: TRAMADOL 50MG TABLET PO PRN (10:00)
[2021-12-12] MEDS: DOCUSATE SODIUM 100MG CAPSULE PO SCH ×2 (11:15→17:48)
[2021-12-12] MEDS ORDERED: SORBITOL 70% SOLN 30ML PO SCH (11:30)
[2021-12-12 12:00] VITALS: BP 101/54
[2021-12-12 16:00] VITALS: BP 113/72
[2021-12-12 16:59] LABS: BASOPHILS % 0.6 % (0.0-2.0); EOSINOPHILS % 0.7 % (0.0-5.0); HEMATOCRIT. 29.3 % (42.0-52.0); HEMOGLOBIN. 9.6 g/dL (14.0-18.0); LYMPHOCYTES % 13.9 % (20.0-50.0); MEAN CORPUSCULAR HEMOGLOBIN 27.7 pg (28.0-32.0); MEAN CORPUSCULAR VOLUME 84.6 fL (80.0-94.0); MEAN PLATELET VOLUME 7.7 fl (7.4-10.4); MONOCYTES % 12.4 % (2.0-8.0); NEUTROPHILS % 72.4 % (40.0-76.0); PLATELET 359 x1000/uL (130-400); RED BLOOD CELL COUNT 3.46 mill/uL (4.7-6.1); RED CELL DISTRIBUTION WIDTH 17.7 % (11.6-14.6)
[2021-12-12 17:09] LABS: CHLORIDE 100 mEq/L (98-107)
[2021-12-12 20:00] VITALS: BP 107/55
[2021-12-12] MEDS: ATORVASTATIN CALCIUM 40MG TABLET PO SCH (20:55)
[2021-12-13] VITALS: BP 103/68
[2021-12-13 04:00] VITALS: BP 104/69
[2021-12-13] MEDS: LACTULOSE 20G/30ML UDC PO SCH ×4 (06:04→21:14)
[2021-12-13] MEDS: MEROPENEM 1,000 MG in SODIUM CHLORIDE 0.9% 100 ML IV SCH ×3 (06:04→21:15)
[2021-12-13 08:00] VITALS: BP 104/56
[2021-12-13] MEDS: SUCRALFATE 1 G/10 ML UDC PO SCH ×4 (08:12→21:14)
[2021-12-13] MEDS: PANTOPRAZOLE SODIUM 40 MG/VIAL IV SCH ×2 (08:12→21:13)
[2021-12-13] MEDS: FOLIC ACID 1MG TABLET PO SCH (08:12)
[2021-12-13] MEDS: DOCUSATE SODIUM 100MG CAPSULE PO SCH ×2 (08:12→16:51)
[2021-12-13] MEDS: MIDODRINE HCL 5MG TABLET PO SCH ×3 (08:12→16:51)
[2021-12-13] MEDS: CARVEDILOL 3.125 MG TABLET PO SCH ×2 (08:13→21:14)
[2021-12-13] MEDS: ALLOPURINOL 100 MG TABLET PO SCH (08:13)
[2021-12-13] MEDS: POTASSIUM-SODIUM PHOSPHATE POWDER PACKET PO SCH ×2 (08:13→16:50)
[2021-12-13 08:27] LABS: BASOPHILS % 0.4 % (0.0-2.0); EOSINOPHILS % 0.6 % (0.0-5.0); HEMATOCRIT. 28.4 % (42.0-52.0); HEMOGLOBIN. 9.3 g/dL (14.0-18.0); LYMPHOCYTES % 9.9 % (20.0-50.0); MEAN CORPUSCULAR HEMOGLOBIN 27.4 pg (28.0-32.0); MEAN CORPUSCULAR VOLUME 83.3 fL (80.0-94.0); MEAN PLATELET VOLUME 7.8 fl (7.4-10.4); MONOCYTES % 10.4 % (2.0-8.0); NEUTROPHILS % 78.7 % (40.0-76.0); PLATELET 364 x1000/uL (130-400); RED BLOOD CELL COUNT 3.41 mill/uL (4.7-6.1); RED CELL DISTRIBUTION WIDTH 18.1 % (11.6-14.6)
[2021-12-13 08:33] LABS: CHLORIDE 101 mEq/L (98-107)
[2021-12-13] MEDS ORDERED: AMIODARONE HCL 200 MG TABLET PO SCH (09:00)
[2021-12-13 12:00] VITALS: BP 94/46
[2021-12-13 12:56] LABS: PHOSPHORUS 2.4 mg/dL (2.5-4.9)
[2021-12-13 16:00] VITALS: BP 93/61
[2021-12-13] MEDS: ASCORBIC ACID 500 MG TABLET PO SCH (16:50)
[2021-12-13] MEDS: FERROUS SULFATE 300MG/5ML UDC PO SCH (16:51)
[2021-12-13 20:00] VITALS: BP 92/59
[2021-12-13] MEDS: ATORVASTATIN CALCIUM 40MG TABLET PO SCH (21:14)
[2021-12-14] VITALS: BP 97/56
[2021-12-14] MEDS ORDERED: GUAIFENESIN-DM 200MG-20MG/10ML UDC PO PRN (01:15)
[2021-12-14 04:00] VITALS: BP 93/64
[2021-12-14] MEDS: MEROPENEM 1,000 MG in SODIUM CHLORIDE 0.9% 100 ML IV SCH ×3 (05:57→23:25)
[2021-12-14] MEDS: LACTULOSE 20G/30ML UDC PO SCH ×4 (05:58→23:24)
[2021-12-14 07:47] LABS: BASOPHILS % 0.4 % (0.0-2.0); EOSINOPHILS % 0.4 % (0.0-5.0); HEMATOCRIT. 26.6 % (42.0-52.0); HEMOGLOBIN. 8.8 g/dL (14.0-18.0); LYMPHOCYTES % 8.9 % (20.0-50.0); MEAN CORPUSCULAR HEMOGLOBIN 27.6 pg (28.0-32.0); MEAN CORPUSCULAR VOLUME 83.3 fL (80.0-94.0); MEAN PLATELET VOLUME 7.7 fl (7.4-10.4); NEUTROPHILS % 77.3 % (40.0-76.0); PLATELET 346 x1000/uL (130-400); RED BLOOD CELL COUNT 3.19 mill/uL (4.7-6.1); RED CELL DISTRIBUTION WIDTH 17.8 % (11.6-14.6)
[2021-12-14 08:00] VITALS: BP 102/55
[2021-12-14 08:12] LABS: CHLORIDE 101 mEq/L (98-107)
[2021-12-14] MEDS: PANTOPRAZOLE SODIUM 40 MG/VIAL IV SCH ×2 (08:18→21:37)
[2021-12-14] MEDS: FOLIC ACID 1MG TABLET PO SCH (08:18)
[2021-12-14] MEDS: SUCRALFATE 1 G/10 ML UDC PO SCH ×4 (08:18→21:37)
[2021-12-14] MEDS: DOCUSATE SODIUM 100MG CAPSULE PO SCH ×2 (08:18→16:18)
[2021-12-14] MEDS: POTASSIUM-SODIUM PHOSPHATE POWDER PACKET PO SCH ×2 (08:18→16:19)
[2021-12-14] MEDS: MIDODRINE HCL 5MG TABLET PO SCH ×3 (08:18→16:18)
[2021-12-14] MEDS: ALLOPURINOL 100 MG TABLET PO SCH (08:18)
[2021-12-14] MEDS: CARVEDILOL 3.125 MG TABLET PO SCH ×2 (08:19→21:37)
[2021-12-14] MEDS ORDERED: POTASSIUM-SODIUM PHOSPHATE POWDER PACKET PO NR (10:15)
[2021-12-14 12:00] VITALS: BP 106/51
[2021-12-14 16:00] VITALS: BP 112/66
[2021-12-14 20:27] VITALS: BP 113/58
[2021-12-14] MEDS: ATORVASTATIN CALCIUM 40MG TABLET PO SCH (21:37)
[2021-12-15 00:34] VITALS: BP 102/55
[2021-12-15 04:00] VITALS: BP 110/57
[2021-12-15] MEDS: LACTULOSE 20G/30ML UDC PO SCH ×4 (06:07→20:41)
[2021-12-15] MEDS: MEROPENEM 1,000 MG in SODIUM CHLORIDE 0.9% 100 ML IV SCH ×3 (06:07→20:42)
[2021-12-15 07:12] LABS: BASOPHILS % 0.3 % (0.0-2.0); EOSINOPHILS % 0.6 % (0.0-5.0); HEMATOCRIT. 26.4 % (42.0-52.0); HEMOGLOBIN. 8.8 g/dL (14.0-18.0); LYMPHOCYTES % 9.8 % (20.0-50.0); MEAN CORPUSCULAR HEMOGLOBIN 28.3 pg (28.0-32.0); MEAN CORPUSCULAR VOLUME 84.4 fL (80.0-94.0); MEAN PLATELET VOLUME 7.7 fl (7.4-10.4); MONOCYTES % 14.6 % (2.0-8.0); NEUTROPHILS % 74.7 % (40.0-76.0); PLATELET 374 x1000/uL (130-400); RED BLOOD CELL COUNT 3.13 mill/uL (4.7-6.1); RED CELL DISTRIBUTION WIDTH 18.5 % (11.6-14.6)
[2021-12-15 07:40] LABS: CHLORIDE 100 mEq/L (98-107)
[2021-12-15 07:49] VITALS: BP 123/66
[2021-12-15] MEDS: SUCRALFATE 1 G/10 ML UDC PO SCH ×4 (08:16→20:41)
[2021-12-15] MEDS: FERROUS SULFATE 300MG/5ML UDC PO SCH (08:16)
[2021-12-15] MEDS: PANTOPRAZOLE SODIUM 40 MG/VIAL IV SCH ×2 (08:16→20:28)
[2021-12-15] MEDS: MIDODRINE HCL 5MG TABLET PO SCH ×3 (08:17→17:13)
[2021-12-15] MEDS: FOLIC ACID 1MG TABLET PO SCH (08:17)
[2021-12-15] MEDS: POTASSIUM-SODIUM PHOSPHATE POWDER PACKET PO SCH ×2 (08:17→17:13)
[2021-12-15] MEDS: DOCUSATE SODIUM 100MG CAPSULE PO SCH ×2 (08:17→17:13)
[2021-12-15] MEDS: CARVEDILOL 3.125 MG TABLET PO SCH ×2 (08:17→20:41)
[2021-12-15] MEDS: ASCORBIC ACID 500 MG TABLET PO SCH (08:17)
[2021-12-15] MEDS: ALLOPURINOL 100 MG TABLET PO SCH (08:22)
[2021-12-15 11:38] VITALS: BP 95/62
[2021-12-15 15:40] VITALS: BP 116/64
[2021-12-15 20:00] VITALS: BP 120/72
[2021-12-15] MEDS: ATORVASTATIN CALCIUM 40MG TABLET PO SCH (20:28)
[2021-12-16] VITALS (7 sets, daily range): BP systolic 99–112; BP diastolic 49–68
[2021-12-16] MEDS: LACTULOSE 20G/30ML UDC PO SCH ×2 (05:26→13:03)
[2021-12-16] MEDS: MEROPENEM 1,000 MG in SODIUM CHLORIDE 0.9% 100 ML IV SCH ×3 (05:27→20:36)
[2021-12-16] MEDS: POTASSIUM-SODIUM PHOSPHATE POWDER PACKET PO SCH ×2 (08:34→16:25)
[2021-12-16] MEDS: DOCUSATE SODIUM 100MG CAPSULE PO SCH ×2 (08:34→16:25)
[2021-12-16] MEDS: SUCRALFATE 1 G/10 ML UDC PO SCH ×4 (08:34→20:39)
[2021-12-16] MEDS: PANTOPRAZOLE SODIUM 40 MG/VIAL IV SCH ×2 (08:34→20:35)
[2021-12-16] MEDS: ALLOPURINOL 100 MG TABLET PO SCH (08:34)
[2021-12-16] MEDS: MIDODRINE HCL 5MG TABLET PO SCH ×3 (08:35→16:25)
[2021-12-16] MEDS: CARVEDILOL 3.125 MG TABLET PO SCH ×2 (08:36→20:36)
[2021-12-16] MEDS: FOLIC ACID 1MG TABLET PO SCH (08:36)
[2021-12-16 08:52] LABS: HEMATOCRIT. 27.2 % (42.0-52.0); MEAN CORPUSCULAR HEMOGLOBIN 27.9 pg (28.0-32.0); MEAN CORPUSCULAR VOLUME 84.7 fL (80.0-94.0); MEAN PLATELET VOLUME 7.6 fl (7.4-10.4); PLATELET 392 x1000/uL (130-400); RED BLOOD CELL COUNT 3.21 mill/uL (4.7-6.1); RED CELL DISTRIBUTION WIDTH 18.2 % (11.6-14.6)
[2021-12-16 09:04] LABS: CHLORIDE 101 mEq/L (98-107)
[2021-12-16] MEDS ORDERED: ACETAMINOPHEN 325MG TABLET PO PRN (16:15)
[2021-12-16] MEDS ORDERED: APIXABAN 2.5 MG TABLET PO SCH (17:00)
[2021-12-16 17:27] LABS: BASOPHILS % 0.6 % (0.0-2.0); EOSINOPHILS % 0.8 % (0.0-5.0); HEMATOCRIT. 30.8 % (42.0-52.0); LYMPHOCYTES % 10.8 % (20.0-50.0); MEAN CORPUSCULAR HEMOGLOBIN 27.9 pg (28.0-32.0); MEAN PLATELET VOLUME 8.1 fl (7.4-10.4); MONOCYTES % 13.7 % (2.0-8.0); NEUTROPHILS % 74.1 % (40.0-76.0); PLATELET 392 x1000/uL (130-400); RED BLOOD CELL COUNT 3.58 mill/uL (4.7-6.1); RED CELL DISTRIBUTION WIDTH 18.9 % (11.6-14.6)
[2021-12-16 17:36] LABS: CHLORIDE 101 mEq/L (98-107)
[2021-12-16] MEDS: ATORVASTATIN CALCIUM 40MG TABLET PO SCH (20:39)
[2021-12-16 22:12] LABS: PLATELET ESTIMATE NORMAL
== END 2021-12-16 21:30 | DRG 871 ==
LOC: ER 13:31 → 7WST 14:33 → ENRESERV 15:26 → CVICU 11-30 09:29 → 7WST 12-10 18:10
PROVIDERS: ADMIT Internal Medicine; ATTEND Internal Medicine
PROC: 02HV33Z Insertion of Infusion Device into Superior Vena Cava, Percutaneous Approach (ICD-10-PCS; 2021-11-30)
PROC: B548ZZA Ultrasonography of Superior Vena Cava, Guidance (ICD-10-PCS; 2021-11-30)
PROC: 0DB78ZX Excision of Stomach, Pylorus, Via Natural or Artificial Opening Endoscopic, Diagnostic (ICD-10-PCS; principal; 2021-12-08)
DX: A41.51 Sepsis due to Escherichia coli [E. coli] (principal); E43 Unspecified severe protein-calorie malnutrition; J69.0 Pneumonitis due to inhalation of food and vomit; R65.21 Severe sepsis with septic shock; K29.71 Gastritis, unspecified, with bleeding; E87.1 Hypo-osmolality and hyponatremia; G45.9 Transient cerebral ischemic attack, unspecified; E87.2 Acidosis; I13.0 Hypertensive heart and chronic kidney disease with heart failure and stage 1 through stage 4 chronic kidney disease, or unspecified chronic kidney disease; N39.0 Urinary tract infection, site not specified; I69.354 Hemiplegia and hemiparesis following cerebral infarction affecting left non-dominant side; I48.92 Unspecified atrial flutter; I42.9 Cardiomyopathy, unspecified; Z16.12 Extended spectrum beta lactamase (ESBL) resistance; G40.909 Epilepsy, unspecified, not intractable, without status epilepticus; N18.1 Chronic kidney disease, stage 1; R80.9 Proteinuria, unspecified; M10.9 Gout, unspecified; E78.00 Pure hypercholesterolemia, unspecified; E78.5 Hyperlipidemia, unspecified; D50.9 Iron deficiency anemia, unspecified; M16.0 Bilateral primary osteoarthritis of hip; E03.9 Hypothyroidism, unspecified; I48.0 Paroxysmal atrial fibrillation; K44.9 Diaphragmatic hernia without obstruction or gangrene; E83.39 Other disorders of phosphorus metabolism; E83.42 Hypomagnesemia; E87.6 Hypokalemia; E88.09 Other disorders of plasma-protein metabolism, not elsewhere classified; G89.29 Other chronic pain; Z20.822 Contact with and (suspected) exposure to COVID-19; I35.8 Other nonrheumatic aortic valve disorders; I50.9 Heart failure, unspecified; F03.90 Unspecified dementia, unspecified severity, without behavioral disturbance, psychotic disturbance, mood disturbance, and anxiety; M47.816 Spondylosis without myelopathy or radiculopathy, lumbar region; Z68.22 Body mass index [BMI] 22.0-22.9, adult; Z74.01 Bed confinement status; Z87.891 Personal history of nicotine dependence; Z98.1 Arthrodesis status; I95.9 Hypotension, unspecified
CPT/HCPCS: 36415; 36573; 36600; 71045; 72100; 73522; 74018; 74176; 80048; 80053; 80061; 80076; 80202; 81003; 82140; 82248; 82270; 82375; 82607; 82746; 82805; 82962; 83540; 83550; 83735; 83880; 84100; 84145; 84443; 84484; 84550; 85014; 85018; 85025; 87077; 87186; 87426; 88305; 88312; 88313; 93005; 93306; 93970; 97161; 97164; 99285; C1725; C9113; J0282; J1940; J2185; J2250; J2370; J2405; J2543; J2704; J3370; J3475; J3480; J3490; J7030; J7042; J7050; J7060; P9047

== ENCOUNTER 2023-10-15 16:05 | Inpatient (IN) | payer MEDICARE, MEDICAID ==
[~2023-10-15] VITALS: Ht 177.8 cm; Wt 72.6 kg
[2023-10-15] MEDS: ATORVASTATIN CALCIUM 40MG TABLET PO SCH (00:40)
[~2023-10-15 16:05] MED LIST: ACET-2708 MT; AMIN887L PO; ATOR40TA70 MT; CHOL400D7 PO; CRAN3875 PO; FERR325T6 MT; FOLI-43 MT; FOLI-43 PO; MULT-230 MT; PANT40TA51 MT
[2023-10-15 17:17] LABS: CHLORIDE 104 mEq/L (98-107); POTASSIUM 4.5 mEq/L (3.5-5.1); SODIUM 136 mEq/L (136-145)
[2023-10-15 17:18] LABS: CALCIUM 8.9 mg/dL (8.7-10.4); CARBON DIOXIDE 27 mEq/L (21-32)
[2023-10-15 17:23] LABS: GLUCOSE 88 mg/dL (70-105); UREA NITROGEN BLOOD 20 mg/dL (9-23)
[2023-10-15 17:24] LABS: BASOPHILS % 0.2 % (0.0-2.0); EOSINOPHILS % 2.6 % (0.0-5.0); HEMATOCRIT. 36.2 % (42.0-52.0); HEMOGLOBIN. 11.7 g/dL (14.0-18.0); LYMPHOCYTES % 20.8 % (20.0-50.0); MEAN CORPUSCULAR HGB CONC 32.3 g/dL (31.0-37.0); MEAN PLATELET VOLUME 7.9 fl (7.4-10.4); MONOCYTES % 14.9 % (2.0-8.0); NEUTROPHILS % 61.5 % (40.0-76.0); PLATELET 262 x1000/uL (130-400); RED BLOOD CELL COUNT 4.02 mill/uL (4.7-6.1); RED CELL DISTRIBUTION WIDTH 16.3 % (11.6-14.6)
[2023-10-15 17:25] LABS: ALANINE AMINOTRANSFERASE < 7 IU/L (10-49); ALBUMIN 4.1 g/dL (3.2-4.8); ASPARTATE AMINOTRANSFERASE 16 IU/L (<34); BILIRUBIN TOTAL 0.4 mg/dL (0.1-1.0); PROTEIN TOTAL 7.1 g/dL (6.0-8.3); TROPONIN I HIGH SENSITIVITY 9 ng/L (3.0-53)
[2023-10-15] MEDS ORDERED: ACETAMINOPHEN 325MG TABLET PO PRN ×2 (19:30→20:00)
[2023-10-15] MEDS ORDERED: ONDANSETRON HCL 4MG/2ML INJ IV PRN (19:30)
[2023-10-15] MEDS ORDERED: HYDROCODONE/ACETAMINOPHEN 5/325MG TABLET PO PRN (19:30)
[2023-10-15] MEDS: DEXT 5%/0.45% NACL 1000ML 1,000 ML IV SCH (19:50)
[2023-10-15] MEDS ORDERED: NALOXONE HCL 0.4MG/ML VIAL IV PRN (20:30)
[2023-10-15] MEDS: HEPARIN 5000 UNITS/ML VIAL SUBCUT SCH (22:00)
[2023-10-15] MEDS: PIPERACILLIN/TAZO 3.375G/50ML 50 ML IV SCH (22:00)
[2023-10-16 01:02] VITALS: BP 102/66; PULSE 80; RESP 18; TEMP 97.9
[2023-10-16] MEDS: PANTOPRAZOLE 40MG DR TABLET PO SCH (06:02)
[2023-10-16 06:30] LABS: HEMATOCRIT. 31.9 % (42.0-52.0); HEMOGLOBIN. 10.6 g/dL (14.0-18.0); MEAN CORPUSCULAR HGB CONC 33.3 g/dL (31.0-37.0); MEAN PLATELET VOLUME 7.8 fl (7.4-10.4); PLATELET 216 x1000/uL (130-400); RED BLOOD CELL COUNT 3.55 mill/uL (4.7-6.1); RED CELL DISTRIBUTION WIDTH 16.7 % (11.6-14.6); WHITE BLOOD COUNT 10.6 x1000/uL (4.5-11.0)
[2023-10-16 06:54] LABS: CHLORIDE 105 mEq/L (98-107); SODIUM 137 mEq/L (136-145)
[2023-10-16 06:55] LABS: CALCIUM 8.6 mg/dL (8.7-10.4); CARBON DIOXIDE 24 mEq/L (21-32)
[2023-10-16 06:56] LABS: DIFFERENTIAL COMMENT 1
[2023-10-16 07:00] LABS: GLUCOSE 92 mg/dL (70-105); UREA NITROGEN BLOOD 18 mg/dL (9-23)
[2023-10-16 07:02] LABS: ALANINE AMINOTRANSFERASE < 7 IU/L (10-49); ALBUMIN 3.3 g/dL (3.2-4.8); ASPARTATE AMINOTRANSFERASE 13 IU/L (<34); BILIRUBIN TOTAL 0.4 mg/dL (0.1-1.0); PROTEIN TOTAL 5.4 g/dL (6.0-8.3)
[2023-10-16 08:00] VITALS: BP 130/72; PULSE 70; RESP 22; TEMP 98.3
[2023-10-16] MEDS: MULTIVITAMINS,THER W-MINERALS TABLET PO SCH (08:46)
[2023-10-16 12:00] VITALS: BP 130/72; PULSE 70; RESP 22; TEMP 98.3
[2023-10-16 13:01] LABS: ANISOCYTOSIS 1+; PLATELET ESTIMATE NORMAL
[2023-10-16 16:00] VITALS: BP 78/67; PULSE 85; RESP 20; TEMP 98.3
[2023-10-16 19:53] VITALS: BP 99/33; PULSE 87; RESP 15
[2023-10-16 22:00] VITALS: BP 90/62; PULSE 77; RESP 16; TEMP 98.6
[2023-10-17] VITALS (8 sets, daily range): BP systolic 78–138; BP diastolic 57–70; PULSE 62–100; RESP 13–21; TEMP 98–98.7
[2023-10-17] MEDS: MIDODRINE HCL 5MG TABLET PO NR (01:05)
[2023-10-17] MEDS: MIDODRINE HCL 2.5MG TABLET PO SCH (09:04)
[2023-10-17 11:56] LABS: BASOPHILS % 0.6 % (0.0-2.0); HEMATOCRIT. 32.2 % (42.0-52.0); HEMOGLOBIN. 10.4 g/dL (14.0-18.0); LYMPHOCYTES % 32.5 % (20.0-50.0); MEAN CORPUSCULAR HEMOGLOBIN 30.3 pg (28.0-32.0); MEAN CORPUSCULAR HGB CONC 32.2 g/dL (31.0-37.0); MEAN CORPUSCULAR VOLUME 94.2 fL (80.0-94.0); MEAN PLATELET VOLUME 7.8 fl (7.4-10.4); MONOCYTES % 12.3 % (2.0-8.0); NEUTROPHILS % 51.6 % (40.0-76.0); PLATELET 218 x1000/uL (130-400); RED BLOOD CELL COUNT 3.42 mill/uL (4.7-6.1); RED CELL DISTRIBUTION WIDTH 16.9 % (11.6-14.6); WHITE BLOOD COUNT 9.2 x1000/uL (4.5-11.0)
[2023-10-17 12:06] LABS: CHLORIDE 107 mEq/L (98-107); POTASSIUM 4.3 mEq/L (3.5-5.1); SODIUM 136 mEq/L (136-145)
[2023-10-17 12:07] LABS: CARBON DIOXIDE 25 mEq/L (21-32)
[2023-10-17 12:12] LABS: CREATININE 0.9 mg/dL (0.6-1.3); GLUCOSE 94 mg/dL (70-105)
[2023-10-17 12:13] LABS: UREA NITROGEN BLOOD 13 mg/dL (9-23)
[2023-10-17 18:09] LABS: CLARITY URINE CLEAR (CLEAR); COLOR URINE YELLOW (YELLOW); GLUCOSE URINE NEGATIVE (NEGATIVE); KETONES URINE NEGATIVE (NEGATIVE); LEUKOCYTE ESTERASE URINE 2+ (NEGATIVE); NITRITE URINE NEGATIVE (NEGATIVE); OCCULT BLOOD URINE NEGATIVE (NEGATIVE); PROTEIN URINE NEGATIVE (NEGATIVE); SPECIFIC GRAVITY URINE 1.011 (1.005-1.030); UROBILINOGEN URINE 0.2 E.U./dL (0.2-1.0)
[2023-10-17 18:41] LABS: RBC URINE 0-2 /hpf (0-2); SQUAMOUS EPITHELIAL CELL URINE RARE /lpf (RARE/1+)
[2023-10-17 18:42] LABS: BACTERIA URINE NONE SEEN
[2023-10-18] VITALS: BP 101/37; PULSE 66; RESP 20; TEMP 98.5
[2023-10-18 04:00] VITALS: BP 106/43; PULSE 63; RESP 14; TEMP 98.2
[2023-10-18 08:00] VITALS: BP 116/60; PULSE 61; RESP 20; TEMP 98.4
[2023-10-18] MEDS ORDERED: MAGNESIUM OXIDE 400MG TABLET PO SCH (10:00)
[2023-10-18 12:00] VITALS: BP 98/63; PULSE 66; RESP 18; TEMP 98.7
[2023-10-18] MEDS: BISACODYL 10MG SUPP PR NR (15:54)
[2023-10-18 16:00] VITALS: BP 90/56; PULSE 50; RESP 14; TEMP 98.4
[2023-10-18] MEDS: NA PHOS,M-B/NA PHOS,DI-BA ENEMA 118ML PR NR (19:45)
[2023-10-18 20:00] VITALS: BP 124/100; PULSE 56; RESP 17; TEMP 98.4
[2023-10-18] MEDS: SENNOSIDES/DOCUSATE SOD 8.6/50MG TABLET PO SCH (21:43)
[2023-10-19] VITALS: BP 116/54; PULSE 80; RESP 22; TEMP 98.5
[2023-10-19 04:00] VITALS: BP 101/61; PULSE 78; RESP 13; TEMP 98.5
[2023-10-19 08:00] VITALS: BP 115/73; PULSE 78; RESP 21; TEMP 98.2
[2023-10-19] MEDS: ASCORBIC ACID 500 MG TABLET PO SCH (08:30)
[2023-10-19] MEDS: DOCUSATE SODIUM 100MG CAPSULE PO SCH (08:31)
[2023-10-19 10:53] VITALS: BP 106/84; PULSE 62; TEMP 98.2; O2SAT 98
[2023-10-19 12:00] VITALS: BP 94/67; PULSE 74; RESP 19; TEMP 98.7
== END 2023-10-19 13:30 | DRG 193 ==
LOC: ER 16:05 → EDBEDREQ 19:04 → EDBEDREQTM 22:12 → EDBEDREQ 22:12 → 3WST 10-16 00:53
PROVIDERS: ADMIT Internal Medicine; ATTEND Internal Medicine
DX: J18.9 Pneumonia, unspecified organism (principal); L89.93 Pressure ulcer of unspecified site, stage 3; I69.354 Hemiplegia and hemiparesis following cerebral infarction affecting left non-dominant side; I50.22 Chronic systolic (congestive) heart failure; E44.1 Mild protein-calorie malnutrition; G40.909 Epilepsy, unspecified, not intractable, without status epilepticus; I11.0 Hypertensive heart disease with heart failure; K29.70 Gastritis, unspecified, without bleeding; I48.0 Paroxysmal atrial fibrillation; Z74.01 Bed confinement status; F03.90 Unspecified dementia, unspecified severity, without behavioral disturbance, psychotic disturbance, mood disturbance, and anxiety; L97.529 Non-pressure chronic ulcer of other part of left foot with unspecified severity; M17.0 Bilateral primary osteoarthritis of knee; Z99.3 Dependence on wheelchair; Z68.23 Body mass index [BMI] 23.0-23.9, adult; M20.11 Hallux valgus (acquired), right foot; M20.12 Hallux valgus (acquired), left foot; K56.41 Fecal impaction; K44.9 Diaphragmatic hernia without obstruction or gangrene; D64.9 Anemia, unspecified
CPT/HCPCS: 36415; 71045; 73620; 74018; 76705; 80048; 80053; 81003; 83880; 84484; 85025; 93005; 99285; J1644; J2543

== ENCOUNTER 2024-04-25 02:18 | Inpatient (IN) | payer MEDICARE, MEDICAID ==
[~2024-04-25] VITALS: Ht 188 cm; Wt 76.7 kg
[2024-04-25] MEDS: PANTOPRAZOLE SODIUM 40 MG/VIAL IV STA (04:15)
[2024-04-25] MEDS: ONDANSETRON HCL 4MG/2ML INJ IV STA (04:15)
[2024-04-25] MEDS: SODIUM CHLORIDE 0.9% 1,000 ML IV ONE (04:15)
[2024-04-25 04:30] LABS: CHLORIDE 107 mEq/L (98-107); POTASSIUM 4.2 mEq/L (3.5-5.1); SODIUM 138 mEq/L (136-145)
[2024-04-25 04:31] LABS: CALCIUM 9.2 mg/dL (8.7-10.4); CARBON DIOXIDE 27 mEq/L (21-32)
[2024-04-25 04:36] LABS: CREATININE 0.8 mg/dL (0.6-1.3); GLUCOSE 100 mg/dL (70-105); UREA NITROGEN BLOOD 16 mg/dL (9-23)
[2024-04-25] MEDS: OCTREOTIDE ACETATE 50 MCG/ML 1ML IV STA (04:36)
[2024-04-25] MEDS: DEXT 5%/0.9% NACL 1,000 ML IV ONE (05:45)
[2024-04-25 06:04] LABS: PARTIAL THROMBOPLASTIN TIME 28.2 sec (23.4-31.0); PROTHROMBIN TIME 11.4 sec (9.6-11.0)
[2024-04-25 07:20] LABS: BASOPHILS % 0.7 % (0.0-2.0); EOSINOPHILS % 0.5 % (0.0-5.0); HEMATOCRIT. 27.6 % (42.0-52.0); HEMOGLOBIN. 8.8 g/dL (14.0-18.0); LYMPHOCYTES % 21.4 % (20.0-50.0); MEAN CORPUSCULAR HEMOGLOBIN 26.2 pg (28.0-32.0); MEAN CORPUSCULAR VOLUME 81.7 fL (80.0-94.0); MEAN PLATELET VOLUME 7.8 fl (7.4-10.4); MONOCYTES % 9.7 % (2.0-8.0); NEUTROPHILS % 67.7 % (40.0-76.0); PLATELET 297 x1000/uL (130-400); RED BLOOD CELL COUNT 3.37 mill/uL (4.7-6.1); RED CELL DISTRIBUTION WIDTH 15.5 % (11.6-14.6); WHITE BLOOD COUNT 11.3 x1000/uL (4.5-11.0)
[2024-04-25 07:37] LABS: ALANINE AMINOTRANSFERASE < 7 IU/L (10-49); ALBUMIN 3.5 g/dL (3.2-4.8); ASPARTATE AMINOTRANSFERASE 13 IU/L (<34); BILIRUBIN DIRECT 0.2 mg/dL (<=3.0); BILIRUBIN TOTAL 0.4 mg/dL (0.1-1.0); PROTEIN TOTAL 5.5 g/dL (6.0-8.3)
[2024-04-25 07:40] LABS: THYROID STIMULATING HORMONE < 0.10 uIU/mL (0.55-4.78)
[2024-04-25 09:10] VITALS: BP 87/56; PULSE 69; RESP 14; TEMP 36.6696
[2024-04-25 10:00] VITALS: BP 98/52; PULSE 72; RESP 19
[2024-04-25 10:17] VITALS: BP 95/65; PULSE 66; RESP 19; TEMP 36.5848
[2024-04-25] MEDS ORDERED: LIDOCAINE HCL 1% 10 MG/ML 10ML VIAL ONE (12:50)
[2024-04-25] MEDS ORDERED: IOHEXOL-300 50 ML BOTTLE IV ONE (14:37)
[2024-04-25] MEDS: PANTOPRAZOLE 80 MG in SODIUM CHLORIDE 0.9% 100 ML IV SCH (16:53)
[2024-04-25] MEDS: DEXT 5%/0.45% NACL 1000ML 1,000 ML IV SCH (16:55)
[2024-04-25 17:01] VITALS: BP 113/48; PULSE 64; RESP 14
[2024-04-25 18:00] VITALS: BP 114/49; PULSE 65; RESP 12
[2024-04-25 19:00] VITALS: BP 98/73; PULSE 66; RESP 18
[2024-04-25] MEDS: NA PHOS,M-B/NA PHOS,DI-BA ENEMA 118ML PR NR (19:45)
[2024-04-26] VITALS: BP 118/73; PULSE 75; RESP 12; TEMP 36.6696; O2SAT 97
[2024-04-26 04:00] VITALS: BP 128/69; PULSE 86; RESP 22; TEMP 36.33624; O2SAT 99
[2024-04-26 08:00] VITALS: BP 106/95; PULSE 86; RESP 21; TEMP 36.3918; O2SAT 96
[2024-04-26] MEDS ORDERED: PANTOPRAZOLE SODIUM 40 MG/VIAL IV SCH (09:00)
[2024-04-26] MEDS: PANTOPRAZOLE SODIUM 40 MG/VIAL IV SCH (11:13)
[2024-04-26] MEDS: POLYETHYLENE GLYCOL 3350 (17GM) 1 DOSE PACK PO SCH (11:13)
[2024-04-26 12:00] VITALS: BP 97/77; PULSE 85; RESP 13; O2SAT 99
[2024-04-26] MEDS: SUCRALFATE 1G TABLET PO SCH (12:33)
[2024-04-26 16:00] VITALS: PULSE 84; RESP 14; O2SAT 99
[2024-04-26 20:00] VITALS: BP 92/56; PULSE 74; RESP 12; TEMP 36.89184; O2SAT 99
[2024-04-27] VITALS: BP 92/56; PULSE 85; RESP 15; TEMP 36.9474; O2SAT 98
[2024-04-27 04:00] VITALS: BP 105/57; PULSE 86; RESP 13; TEMP 36.78072; O2SAT 99
[2024-04-27 07:25] LABS: BASOPHILS % 0.7 % (0.0-2.0); EOSINOPHILS % 3.9 % (0.0-5.0); HEMATOCRIT. 21.9 % (42.0-52.0); HEMOGLOBIN. 7.1 g/dL (14.0-18.0); MEAN CORPUSCULAR HEMOGLOBIN 26.3 pg (28.0-32.0); MEAN CORPUSCULAR HGB CONC 32.2 g/dL (31.0-37.0); MEAN CORPUSCULAR VOLUME 81.7 fL (80.0-94.0); MEAN PLATELET VOLUME 7.8 fl (7.4-10.4); MONOCYTES % 14.9 % (2.0-8.0); NEUTROPHILS % 50.5 % (40.0-76.0); PLATELET 219 x1000/uL (130-400); RED BLOOD CELL COUNT 2.68 mill/uL (4.7-6.1); RED CELL DISTRIBUTION WIDTH 15.2 % (11.6-14.6); WHITE BLOOD COUNT 6.8 x1000/uL (4.5-11.0)
[2024-04-27 07:37] LABS: CHLORIDE 107 mEq/L (98-107); POTASSIUM 3.6 mEq/L (3.5-5.1); SODIUM 138 mEq/L (136-145)
[2024-04-27 07:38] LABS: CALCIUM 8.2 mg/dL (8.7-10.4); CARBON DIOXIDE 26 mEq/L (21-32)
[2024-04-27 07:41] LABS: VITAMIN B12 SERUM 803 pg/mL (211-911)
[2024-04-27 07:42] LABS: IRON 21 ug/dL (65-175)
[2024-04-27 07:43] LABS: FERRITIN 17 ng/mL (22-322); GLUCOSE 183 mg/dL (70-105); UREA NITROGEN BLOOD 11 mg/dL (9-23)
[2024-04-27 07:45] LABS: ALANINE AMINOTRANSFERASE 8 IU/L (10-49); ASPARTATE AMINOTRANSFERASE 13 IU/L (<34); BILIRUBIN DIRECT 0.2 mg/dL (<=3.0); BILIRUBIN TOTAL 0.5 mg/dL (0.1-1.0); PROTEIN TOTAL 4.9 g/dL (6.0-8.3); TOTAL IRON BINDING CAPACITY 258 ug/dl (250-425)
[2024-04-27 08:00] VITALS: BP 105/33; PULSE 76; RESP 13; TEMP 36.6696; O2SAT 100
[2024-04-27 12:00] VITALS: BP 115/59; PULSE 70; RESP 11; O2SAT 100
[2024-04-27] MEDS: POTASSIUM CHLORIDE 20MEQ/PACKET PO NR (12:20)
[2024-04-27 16:00] VITALS: BP 93/48; PULSE 86; RESP 16; O2SAT 96
[2024-04-27] MEDS: FERROUS SULFATE 325MG TABLET PO SCH (17:32)
[2024-04-27 20:00] VITALS: BP 158/100; PULSE 87; RESP 17; O2SAT 97
[2024-04-27 22:05] LABS: HEMATOCRIT 26.2 % (42.0-52.0); HEMOGLOBIN 8.3 g/dL (14.0-18.0)
[2024-04-28] VITALS (7 sets, daily range): BP systolic 94–120; BP diastolic 53–76; PULSE 65–90; RESP 10–33; TEMP 36.44736–36.9474; O2SAT 96–100
[2024-04-28 06:53] LABS: BASOPHILS % 0.6 % (0.0-2.0); EOSINOPHILS % 4.3 % (0.0-5.0); HEMATOCRIT. 23.5 % (42.0-52.0); HEMOGLOBIN. 7.6 g/dL (14.0-18.0); LYMPHOCYTES % 23.7 % (20.0-50.0); MEAN CORPUSCULAR HEMOGLOBIN 26.7 pg (28.0-32.0); MEAN CORPUSCULAR HGB CONC 32.4 g/dL (31.0-37.0); MEAN CORPUSCULAR VOLUME 82.4 fL (80.0-94.0); MEAN PLATELET VOLUME 7.7 fl (7.4-10.4); MONOCYTES % 13.5 % (2.0-8.0); NEUTROPHILS % 57.9 % (40.0-76.0); PLATELET 203 x1000/uL (130-400); RED BLOOD CELL COUNT 2.86 mill/uL (4.7-6.1); RED CELL DISTRIBUTION WIDTH 15.5 % (11.6-14.6); WHITE BLOOD COUNT 8.7 x1000/uL (4.5-11.0)
[2024-04-28 06:59] LABS: INR 1.1; PROTHROMBIN TIME 11.8 sec (9.6-11.0)
[2024-04-28 07:02] LABS: CHLORIDE 108 mEq/L (98-107); POTASSIUM 4.1 mEq/L (3.5-5.1); SODIUM 139 mEq/L (136-145)
[2024-04-28 07:03] LABS: CARBON DIOXIDE 27 mEq/L (21-32)
[2024-04-28 07:04] LABS: CALCIUM 8.5 mg/dL (8.7-10.4)
[2024-04-28 07:09] LABS: GLUCOSE 90 mg/dL (70-105); UREA NITROGEN BLOOD 9 mg/dL (9-23)
[2024-04-28] MEDS ORDERED: ONDANSETRON HCL 4MG/2ML INJ IV PRN (10:45)
[2024-04-28] MEDS ORDERED: MEPERIDINE HCL/PF 25MG/ML CPJ IV PRN (10:45)
[2024-04-28] MEDS ORDERED: HYDROMORPHONE HCL/PF 1MG/ML INJ IV PRN (10:45)
[2024-04-28] MEDS ORDERED: LABETALOL 5MG/ML 4ML INJ IV PRN (10:45)
[2024-04-28] MEDS: PANTOPRAZOLE 40MG DR TABLET PO SCH (15:04)
[2024-04-29] VITALS: BP 130/54; PULSE 87; RESP 16; TEMP 37.05852; O2SAT 98
[2024-04-29 04:00] VITALS: BP 109/65; PULSE 79; RESP 17; TEMP 37.05852; O2SAT 99
[2024-04-29 07:05] LABS: BASOPHILS % 0.3 % (0.0-2.0); EOSINOPHILS % 4.6 % (0.0-5.0); LYMPHOCYTES % 27.5 % (20.0-50.0); MEAN CORPUSCULAR HEMOGLOBIN 26.4 pg (28.0-32.0); MEAN CORPUSCULAR VOLUME 82.5 fL (80.0-94.0); MEAN PLATELET VOLUME 7.5 fl (7.4-10.4); MONOCYTES % 13.5 % (2.0-8.0); NEUTROPHILS % 54.1 % (40.0-76.0); PLATELET 216 x1000/uL (130-400); RED BLOOD CELL COUNT 3.03 mill/uL (4.7-6.1); RED CELL DISTRIBUTION WIDTH 15.5 % (11.6-14.6); WHITE BLOOD COUNT 7.3 x1000/uL (4.5-11.0)
[2024-04-29 08:00] VITALS: BP 109/80; PULSE 88; RESP 18; TEMP 36.89184; O2SAT 97
[2024-04-29 10:00] VITALS: BP 98/60; PULSE 95; RESP 14; O2SAT 99
[2024-04-29 11:22] VITALS: BP 98/60; PULSE 95; TEMP 98.4; O2SAT 99
[2024-04-29 12:00] VITALS: BP 110/46; PULSE 49; RESP 13; TEMP 36.9474; TEMP 36.94740; O2SAT 98
== END 2024-04-29 15:44 | DRG 378 ==
LOC: ER 02:18 → 5EST 05:08 → ER 08:12
PROVIDERS: ADMIT Internal Medicine; ATTEND Internal Medicine
PROC: 02HV33Z Insertion of Infusion Device into Superior Vena Cava, Percutaneous Approach (ICD-10-PCS; 2024-04-25)
PROC: B5181ZA Fluoroscopy of Superior Vena Cava using Low Osmolar Contrast, Guidance (ICD-10-PCS; 2024-04-25)
PROC: B548ZZA Ultrasonography of Superior Vena Cava, Guidance (ICD-10-PCS; 2024-04-25)
PROC: 0DB68ZX Excision of Stomach, Via Natural or Artificial Opening Endoscopic, Diagnostic (ICD-10-PCS; principal; 2024-04-28)
PROC: 0DB78ZX Excision of Stomach, Pylorus, Via Natural or Artificial Opening Endoscopic, Diagnostic (ICD-10-PCS; 2024-04-28)
DX: K29.71 Gastritis, unspecified, with bleeding (principal); E46 Unspecified protein-calorie malnutrition; I42.8 Other cardiomyopathies; I11.0 Hypertensive heart disease with heart failure; F03.90 Unspecified dementia, unspecified severity, without behavioral disturbance, psychotic disturbance, mood disturbance, and anxiety; I48.0 Paroxysmal atrial fibrillation; I50.9 Heart failure, unspecified; J44.9 Chronic obstructive pulmonary disease, unspecified; M17.0 Bilateral primary osteoarthritis of knee; Z68.21 Body mass index [BMI] 21.0-21.9, adult; K44.9 Diaphragmatic hernia without obstruction or gangrene; K56.41 Fecal impaction; R32 Unspecified urinary incontinence; D64.9 Anemia, unspecified; Z74.01 Bed confinement status; Z86.73 Personal history of transient ischemic attack (TIA), and cerebral infarction without residual deficits; Z87.891 Personal history of nicotine dependence
CPT/HCPCS: 36415; 36573; 71045; 74018; 80048; 80076; 82270; 82607; 82728; 83540; 83550; 83605; 84443; 85014; 85018; 85025; 85044; 86850; 86900; 86920; 88305; 88312; 88313; 99285; C1725; C1769; C1892; J2354; J2405; J2470; J3490; J7030; J7050; Q9967

== ENCOUNTER 2025-04-10 07:50 | Inpatient (IN) | payer MEDICARE, MEDICAID ==
[~2025-04-10] VITALS: Ht 172.7 cm; Wt 72.1 kg
[~2025-04-10 07:50] MED LIST changes: -FOLI-43 PO
[2025-04-10 07:53] VITALS: O2SAT 97
[2025-04-10] MEDS: SODIUM CHLORIDE 0.9% 1,000 ML IV ONE (08:43)
[2025-04-10] MEDS: ONDANSETRON HCL 4MG/2ML INJ IV ONE (08:43)
[2025-04-10] MEDS: PANTOPRAZOLE SODIUM 40 MG/VIAL IV ONE (08:43)
[2025-04-10 09:14] LABS: HEMATOCRIT. 37.0 % (42.0-52.0); HEMOGLOBIN. 11.9 g/dL (14.0-18.0); INR 1.1; MEAN PLATELET VOLUME 8.2 fl (7.4-10.4); PLATELET 207 x1000/uL (130-400); RED BLOOD CELL COUNT 4.18 mill/uL (4.7-6.1); RED CELL DISTRIBUTION WIDTH 15.9 % (11.6-14.6)
[2025-04-10 09:16] LABS: CREATININE 0.9 mg/dL (0.6-1.3); UREA NITROGEN BLOOD 22 mg/dL (9-23)
[2025-04-10 09:18] LABS: ASPARTATE AMINOTRANSFERASE 15 IU/L (<34); BILIRUBIN DIRECT 0.4 mg/dL (<=3.0); BILIRUBIN TOTAL 1.0 mg/dL (0.1-1.0)
[2025-04-10 09:19] LABS: PROTEIN TOTAL 6.4 g/dL (6.0-8.3)
[2025-04-10] MEDS: CEFTRIAXONE 1GM/50ML 50 ML IV ONE (09:48)
[2025-04-10 12:00] VITALS: BP 83/51; PULSE 89; RESP 17; TEMP 36.6; O2SAT 98
[2025-04-10] MEDS: SODIUM CHLORIDE 0.9% 500 ML IV ONE (12:15)
[2025-04-10] MEDS ORDERED: ONDANSETRON HCL 4MG/2ML INJ IV PRN (12:30)
[2025-04-10] MEDS ORDERED: ACETAMINOPHEN 650MG SUPP PR PRN (12:30)
[2025-04-10 13:00] VITALS: BP 83/40; PULSE 72; RESP 20; TEMP 36.418
[2025-04-10] MEDS: MIDODRINE HCL 5MG TABLET PO SCH (15:11)
[2025-04-10 16:00] VITALS: BP 81/45; PULSE 72; RESP 18; TEMP 36.4; O2SAT 98
[2025-04-10 16:37] LABS: BAND% 15.0 % (1.0-6.0); LYMPHOCYTES % MANUAL 12.0 % (20.0-50.0); MONOCYTES % MANUAL 3.0 % (2.0-8.0); NEUTROPHILS % MANUAL 70.0 % (45.0-75.0); NUCLEATED RED BLOOD CELLS 1 /100 WBC; PLATELET ESTIMATE NORMAL
[2025-04-10] MEDS: DEXT 5%/0.45% NACL 1000ML 1,000 ML IV SCH (17:40)
[2025-04-10 20:00] VITALS: BP 89/62; PULSE 86; RESP 18; TEMP 36.2; O2SAT 97
[2025-04-11] VITALS: BP 88/39; PULSE 94; RESP 18; TEMP 36.2; O2SAT 96
[2025-04-11 04:00] VITALS: BP 93/58; PULSE 62; RESP 18; TEMP 36.1; O2SAT 90
[2025-04-11 07:12] LABS: CREATININE 0.8 mg/dL (0.6-1.3); UREA NITROGEN BLOOD 13 mg/dL (9-23)
[2025-04-11 07:25] LABS: BASOPHILS % 0.4 % (0.0-2.0); EOSINOPHILS % 1.0 % (0.0-5.0); HEMATOCRIT. 30.2 % (42.0-52.0); HEMOGLOBIN. 9.9 g/dL (14.0-18.0); LYMPHOCYTES % 17.4 % (20.0-50.0); MEAN PLATELET VOLUME 8.4 fl (7.4-10.4); MONOCYTES % 8.3 % (2.0-8.0); NEUTROPHILS % 72.9 % (40.0-76.0); PLATELET 162 x1000/uL (130-400); RED BLOOD CELL COUNT 3.37 mill/uL (4.7-6.1); RED CELL DISTRIBUTION WIDTH 16.4 % (11.6-14.6)
[2025-04-11 08:00] VITALS: BP 105/50; PULSE 68; RESP 18; TEMP 36.4; O2SAT 96
[2025-04-11] MEDS: PANTOPRAZOLE SODIUM 40 MG/VIAL IV SCH (08:21)
[2025-04-11 12:00] VITALS: BP 126/87; PULSE 64; RESP 18; TEMP 36.3; O2SAT 98
[2025-04-11 16:00] VITALS: BP 92/59; PULSE 60; RESP 18; TEMP 36.2; O2SAT 97
[2025-04-11 20:00] VITALS: BP 108/63; PULSE 57; RESP 18; TEMP 36.3; O2SAT 96
[2025-04-12] VITALS (7 sets, daily range): BP systolic 83–117; BP diastolic 45–67; PULSE 53–89; RESP 15–18; TEMP 36.3–36.6; O2SAT 95–98
[2025-04-13] VITALS: BP 120/62; PULSE 87; RESP 18; TEMP 36.4; O2SAT 98
[2025-04-13 04:00] VITALS: BP 118/67; PULSE 78; RESP 18; TEMP 35.8; O2SAT 97
[2025-04-13 08:00] VITALS: BP 103/54; PULSE 75; RESP 18; TEMP 36.1; O2SAT 97
[2025-04-13 12:00] VITALS: BP 106/78; PULSE 86; RESP 18; TEMP 36.4; O2SAT 100
[2025-04-13 16:00] VITALS: BP 129/82; PULSE 104; RESP 22; TEMP 36.4; O2SAT 99
[2025-04-13 20:00] VITALS: BP 121/52; PULSE 62; RESP 17; TEMP 36.6; O2SAT 93
[2025-04-14] VITALS: BP 118/74; PULSE 70; RESP 17; TEMP 36.4; O2SAT 93
[2025-04-14 04:00] VITALS: BP 145/75; PULSE 84; RESP 18; TEMP 36.6; O2SAT 95
[2025-04-14 08:00] VITALS: BP 113/61; PULSE 80; RESP 18; TEMP 36.3; O2SAT 97
[2025-04-14 12:00] VITALS: BP 113/54; PULSE 69; RESP 18; TEMP 36.4; O2SAT 97
[2025-04-14 12:28] LABS: BASOPHILS % 0.4 % (0.0-2.0); EOSINOPHILS % 3.2 % (0.0-5.0); HEMATOCRIT. 31.6 % (42.0-52.0); HEMOGLOBIN. 10.4 g/dL (14.0-18.0); LYMPHOCYTES % 23.1 % (20.0-50.0); MEAN PLATELET VOLUME 8.2 fl (7.4-10.4); MONOCYTES % 12.6 % (2.0-8.0); NEUTROPHILS % 60.7 % (40.0-76.0); PLATELET 201 x1000/uL (130-400); RED BLOOD CELL COUNT 3.54 mill/uL (4.7-6.1); RED CELL DISTRIBUTION WIDTH 15.7 % (11.6-14.6)
[2025-04-14 12:50] LABS: CREATININE 0.8 mg/dL (0.6-1.3); UREA NITROGEN BLOOD 6 mg/dL (9-23)
[2025-04-14 16:00] VITALS: BP 133/53; PULSE 44; RESP 18; TEMP 36.4; O2SAT 97
[2025-04-14 20:00] VITALS: BP 115/46; PULSE 65; RESP 16; TEMP 36.7; O2SAT 98
[2025-04-15] VITALS: BP 99/36; PULSE 70; RESP 15; TEMP 36.8; O2SAT 99
[2025-04-15 04:00] VITALS: BP 103/59; PULSE 76; RESP 16; TEMP 36.6; O2SAT 97
[2025-04-15 05:31] VITALS: BP 103/59; PULSE 76; RESP 16; TEMP 36.6; O2SAT 97
[2025-04-15 08:00] VITALS: BP 114/51; PULSE 86; RESP 18; TEMP 36.4; O2SAT 99
[2025-04-15] MEDS: AZITHROMYCIN 500 MG TABLET PO SCH (08:36)
[2025-04-15 12:00] VITALS: BP 78/44; PULSE 68; RESP 18; TEMP 36.4; O2SAT 97
[2025-04-15 16:00] VITALS: BP 135/48; PULSE 65; RESP 18; TEMP 36.4; O2SAT 99
== END 2025-04-15 20:51 | DRG 377 ==
LOC: ER 07:59 → 5WST 10:33 → EDBEDREQTM 10:50 → EDBEDREQ 10:50 → ENRESERV 10:56
PROVIDERS: ADMIT Internal Medicine Nephrology; ATTEND Internal Medicine Nephrology
DX: K92.2 Gastrointestinal hemorrhage, unspecified (principal); L89.143 Pressure ulcer of left lower back, stage 3; L89.223 Pressure ulcer of left hip, stage 3; L89.153 Pressure ulcer of sacral region, stage 3; L89.513 Pressure ulcer of right ankle, stage 3; L89.93 Pressure ulcer of unspecified site, stage 3; F03.94 Unspecified dementia, unspecified severity, with anxiety; I69.354 Hemiplegia and hemiparesis following cerebral infarction affecting left non-dominant side; G40.909 Epilepsy, unspecified, not intractable, without status epilepticus; D72.829 Elevated white blood cell count, unspecified; I48.0 Paroxysmal atrial fibrillation; D64.9 Anemia, unspecified; I50.9 Heart failure, unspecified; Z53.20 Procedure and treatment not carried out because of patient's decision for unspecified reasons; Z74.01 Bed confinement status
CPT/HCPCS: 36415; 71045; 80048; 80076; 85025; 93005; 93306; 96365; 96375; 99285; A4606; J0696; J2405; J2470; J7030